=== PATIENT | male | born 1985 ===

== ENCOUNTER 2020-03-26 09:57 | Outpatient (REF) | payer MEDICAID, SELFPAY | END 2020-03-26 09:58 | disposition home or self-care (01) | LOC: HO.LAB 09:57 | PROVIDERS: Visit Provider Internal Medicine | DX: Z20.828 Contact with and (suspected) exposure to other viral communicable diseases (principal) | CPT/HCPCS: 36415; 87635 ==

== ENCOUNTER → 2020-05-04 09:38 | Outpatient (BNVA) | payer MEDICAID, SELFPAY | PROVIDERS: PCP Family Medicine; Referring Provider Family Medicine; Visit Provider Surgery | DX: L05.01 Pilonidal cyst with abscess (principal) | CPT/HCPCS: 99212 ==

== ENCOUNTER 2020-09-08 17:01 | Outpatient (REF) | payer MEDICAID, SELFPAY ==
--- NOTE | ~2020-09-08 | MR_ITS ---
EXAMINATION: MR BRAIN WITHOUT CONTRAST CLINICAL INFORMATION: Headaches. COMPARISON: Head CT from . TECHNIQUE: Multiplanar, multisequence imaging of the brain was performed without contrast. FINDINGS: No diffusion abnormalities are identified to suggest an acute infarct. The ventricles are normal in size. No mass effect or midline shift is seen. No brain parenchymal signal abnormality is noted. No extra-axial fluid collections are seen. The brainstem and cerebellum are normal. The gradient refocused acquisition is normal. The craniovertebral junction, marrow signal, and midline structures are normal. The major intracranial flow voids at the level of the [place] are preserved. The dural venous sinus flow voids are maintained. The mastoid air cells are well aerated. A focal depressed defect in the medial wall of the left orbit may be chronically posttraumatic in etiology. There is a mild amount of fluid and mucosal thickening in the right frontal sinus ostium and frontal recess. Severe leftward nasal septal deviation with nasal septal spurring. Small retention cysts visible along the floor of the right maxillary sinus. There is an incidental ovoid 2.4 x 0.6 x 2.3 cm left parietal scalp lipoma. MR/MR head/brain wo con IMPRESSION: Normal MRI of the brain. No acute process. Mild amount of fluid and mucosal thickening in the right frontal sinus ostium and frontal recess. Severe leftward nasal septal deviation and nasal septal spurring. Incidental small left parietal scalp lipoma.
== END 2020-09-08 17:02 | disposition home or self-care (01) ==
LOC: HO.MRI 17:01
PROVIDERS: Visit Provider Registered Nurse Community Health
DX: G44.85 Primary stabbing headache (principal)
CPT/HCPCS: 70551

== ENCOUNTER 2020-10-14 13:57 | Outpatient (REF) | payer MEDICAID, SELFPAY ==
[2020-10-14 14:33] LABS: COVID-19 Test Negative (Negative)
== END 2020-10-14 13:58 | disposition home or self-care (01) ==
LOC: HO.LAB 13:57
PROVIDERS: Visit Provider Internal Medicine
DX: Z20.822 Contact with and (suspected) exposure to COVID-19 (principal)
CPT/HCPCS: 36415; 87635; C9803

== ENCOUNTER 2021-09-02 03:35 | Emergency (ER) | payer MEDICAID, SELFPAY ==
--- NOTE | ~2021-09-02 | CT_ITS ---
EXAMINATION: NONCONTRAST HEAD CT NONCONTRAST CERVICAL SPINE CT INDICATION INFORMATION: Fall, pain COMPARISON: 09/08/2020 TECHNIQUE: Separate noncontrast CT examinations of the head and cervical spine were performed. Coronal head CT images and coronal and sagittal cervical spine images were created at the technologist workstation. DLP: 1116 mGy-cm DOSE LOWERING TECHNIQUES: This CT examination was performed using dose optimization techniques as appropriate, variously including the following: - Automated exposure control - Adjustment of mA and/or kV according to patient size (this includes techniques or standardized protocols for targeted exams were dose is matched to indication/reason for exam; i.e. extremities or head) - Use of iterative reconstruction technique FINDINGS: Head: There is no evidence of acute intracranial hemorrhage or territorial infarction. No abnormal mass-effect or midline shift is seen. [place] to white matter differentiation is well preserved. No extra-axial fluid collections are identified. The ventricles are normal in size. There is no abnormal attenuation within the brain parenchyma. The osseous structures and soft tissues are normal. Small mucous retention cysts in the right maxillary and frontal sinuses. The mastoid air cells are well-aerated. Cervical spine: There is anatomic alignment of the vertebral bodies and posterior elements. Vertebral body heights are maintained. There is mild disc space narrowing at C5-C6 with associated endplate osteophytes. No evidence of acute fracture. No prevertebral soft tissue swelling. Visualized portions of the lung apices are unremarkable. The thyroid gland is unremarkable. CT/CT head/brain wo con IMPRESSION: No acute findings identified in the head or cervical spine.
--- NOTE | ~2021-09-02 | XR_ITS ---
EXAMINATION: XR SHOULDER, LEFT CLINICAL INFORMATION: Fall, pain COMPARISON: 12/14/2015 TECHNIQUE: Three views of the left shoulder. FINDINGS: Glenohumeral alignment is anatomic with moderate degenerative change. No acute fracture is seen. Plate and screw fixation hardware is present along the left clavicle. The acromioclavicular joint is intact with mild degenerative change. XR/XR shoulder LT min 2V IMPRESSION: No acute findings identified.
--- NOTE | ~2021-09-02 | CT_ITS ---
EXAMINATION: NONCONTRAST HEAD CT NONCONTRAST CERVICAL SPINE CT INDICATION INFORMATION: Fall, pain COMPARISON: 09/08/2020 TECHNIQUE: Separate noncontrast CT examinations of the head and cervical spine were performed. Coronal head CT images and coronal and sagittal cervical spine images were created at the technologist workstation. DLP: 1116 mGy-cm DOSE LOWERING TECHNIQUES: This CT examination was performed using dose optimization techniques as appropriate, variously including the following: - Automated exposure control - Adjustment of mA and/or kV according to patient size (this includes techniques or standardized protocols for targeted exams were dose is matched to indication/reason for exam; i.e. extremities or head) - Use of iterative reconstruction technique FINDINGS: Head: There is no evidence of acute intracranial hemorrhage or territorial infarction. No abnormal mass-effect or midline shift is seen. [place] to white matter differentiation is well preserved. No extra-axial fluid collections are identified. The ventricles are normal in size. There is no abnormal attenuation within the brain parenchyma. The osseous structures and soft tissues are normal. Small mucous retention cysts in the right maxillary and frontal sinuses. The mastoid air cells are well-aerated. Cervical spine: There is anatomic alignment of the vertebral bodies and posterior elements. Vertebral body heights are maintained. There is mild disc space narrowing at C5-C6 with associated endplate osteophytes. No evidence of acute fracture. No prevertebral soft tissue swelling. Visualized portions of the lung apices are unremarkable. The thyroid gland is unremarkable. CT/CT cervical spine wo con IMPRESSION: No acute findings identified in the head or cervical spine.
--- NOTE | ~2021-09-02 | XR_ITS ---
EXAMINATION: XR LUMBOSACRAL SPINE CLINICAL INFORMATION: Fall, pain COMPARISON: None TECHNIQUE: Three views of the lumbosacral spine. FINDINGS: There is anatomic alignment of the lumbar vertebral bodies and posterior elements. Vertebral body heights are maintained. Intervertebral disc spaces are relatively well-preserved. No acute fracture is seen. Sacroiliac joints are intact. XR/XR lumbar spine 2-3V IMPRESSION: No acute findings identified.
[2021-09-02 03:40] VITALS: BP 128/74; PULSE 76; RESP 16; TEMP 36.7; O2SAT 100; BMI 22.8
--- NOTE | 2021-09-02 03:58 | ED.FALL ---
HPI - Fall General Chief Complaint: Fall Stated Complaint: Syncope Time Seen by Provider: 09/02/21 03:39 Source: patient Mode of arrival: ambulatory Limitations: no limitations History of Present Illness MD complaint: fall Onset (ago): hour(s) (24) Fall from: standing and down stairs (#) (10) Fall witnessed: no Place fall occurred: home Loss of consciousness: unsure Prolonged down time: no Symptoms prior to fall: dizziness (occasionally gets dizzy when he stands felt slightly dizzy and fell - had just gotten up and his bedroom is right by the stairs) Context: other (lost balance) Location of injury: head, neck and back Location of injury - extremities: left: shoulder Severity: moderate Quality: dull and aching Associated symptoms (after fall): headache Related Data Home Medications Medication Instructions Recorded Confirmed omeprazole 20 mg tablet,delayed 20 mg PO DAILY 05/04/20 05/04/20 release Previous Rx's Medication Instructions Recorded cyclobenzaprine 10 mg tablet 10 mg PO TID PRN #14 tab 09/02/21 lidocaine 4 % topical patch 1 patch TOPICAL DAILY PRN #10 ea 09/02/21 Allergies Allergy/AdvReac Type Severity Reaction Status Date / Time prednisone [PREDNISONE] Allergy Unknown UNKNOWN Verified 05/04/20 09:48 Review of Systems Review of Systems: Constitutional : No Fever, No Chills ENT/Mouth : No Ear Pain, No Hoarseness, No sore throat Eyes: No Eye Pain, No Swelling, No Redness, No Foreign Body Cardiovascular : No Chest Pain, No SOB Respiratory : No Cough, No Dyspnea Gastrointestinal : No Nausea, No Vomiting, No Diarrhea, No abdominal Pain Genitourinary : No Dysuria, No Hematuria Musculoskeletal : positive joint pain, No Myalgias, No Joint Swelling Skin : No Skin lacerations, No rash Neuro : No Weakness, No Numbness, No Loss of Consciousness, No Dizziness, pos Headache Psych : No Anxiety/Panic, No Depression Heme/Lymph: no easy bruising, no Lymphadenopathy Endocrine : No Polyuria, No Polydipsia All other systems reviewed and are negative [facility] Past Medical History Medical History Anxiety Family history of colon cancer Surgical History (Updated 05/04/20 @ 09:50 by MONTSERRAT Hicks) History of shoulder surgery History of surgical removal of pilonidal cyst Social History Social History (Updated 09/02/21 @ 04:04 by Yanni Godinez DO) Alcohol intake: never Patient Tobacco Use Status: Tobacco use Unknown Advance Directives: No Physical Exam Vital Signs: Vital Signs: Last Vital Signs Temp 98.1 F 09/02/21 03:40 Pulse 63 09/02/21 04:19 Resp 16 09/02/21 04:19 BP 117/75 09/02/21 04:19 Pulse Ox 98 09/02/21 04:19 BMI result Body Mass Index 22.8 Appearance: Alert. Oriented X3. No acute distress. Eyes: Pupils equal, round and reactive to light. ENT: Pharynx normal. Neck: Normal inspection. ttp along R trapezius no step offs CVS: Normal heart rate and rhythm. Pulses normal. Respiratory: No respiratory distress. Breath sounds normal. Abdomen: Soft and non-tender. Back: ttp along lower lumbar area no step offs no hematoma noted Skin: Skin warm and dry. Normal skin color. Normal skin turgor. Extremities: No lower extremity edema. ttp along posterior shoulder contusion noted distal NV intact, full ROM Neuro: Oriented X 3. No motor deficit. No sensory deficit. Course Course Course Narrative: no acute findings at this time MDM - Fall MDM Narrative Medical decision making narrative: 36 yo male with no sig PMH no AC therapy reports feeling dizzy after getting out of bed last night no CP/SOB reports he has felt dizzy in the past upon standing - no GIB symptoms reported VS stable doubt anemia at this time he then notes because his bedroom door is close to the stairs he fell and tried to grab the railing and ended up falling - possible LOC. Has pain to head and neck - CT head/neck ordered for trauma (hx of concussions in the past) xrays of lumbar spine and left shoulder. Dispo per results and findings. Discharge Plan Discharge Clinical Impression: Contusion of left shoulder Qualifiers: Encounter type: initial encounter Qualified Code(s): S40.012A - Contusion of left shoulder, initial encounter Head injury Qualifiers: Encounter type: initial encounter Qualified Code(s): S09.90XA - Unspecified injury of head, initial encounter Patient Disposition: Home, Self-Care Instructions: Head Injury (ED), Contusion in Adults (ED) Additional Instructions: return to ED for any worsening symptoms or concerns no acute findings on CT of the head, cervical spine xrays of shoulder and lower back negative for fracture Prescriptions: New cyclobenzaprine 10 mg tablet 10 mg PO TID PRN (Reason: muscle spasm) Qty: 14 0RF lidocaine 4 % adhesive patch,medicated 1 patch topical DAILY PRN (Reason: pain) Qty: 10 0RF Rx Instructions: may leave on for up to 12 hrs No Action omeprazole 20 mg tablet,delayed release (DR/EC) 20 mg PO DAILY 0RF Stand Alone Forms: Work/School Release
[2021-09-02 04:19] VITALS: BP 117/75; PULSE 63; RESP 16; O2SAT 98
[2021-09-02 06:00] VITALS: PULSE 81; RESP 16; O2SAT 97
== END 2021-09-02 06:43 | disposition home or self-care (01) ==
PROVIDERS: Emergency Provider Emergency Medicine
DX: S09.90XA Unspecified injury of head, initial encounter (principal); S40.012A Contusion of left shoulder, initial encounter; W10.9XXA Fall (on) (from) unspecified stairs and steps, initial encounter; Y93.9 Activity, unspecified; Y92.009 Unspecified place in unspecified non-institutional (private) residence as the place of occurrence of the external cause; Y99.9 Unspecified external cause status
CPT/HCPCS: 70450; 72100; 72125; 73030; 99284

== ENCOUNTER 2022-05-15 08:03 | Emergency (ER) | payer MEDICAID, SELFPAY ==
[2022-05-15 08:05] VITALS: BP 107/67; PULSE 76; RESP 18; TEMP 36.7; O2SAT 99; BMI 25.8
--- NOTE | 2022-05-15 08:35 | ED.SKABFB ---
HPI - Skin/Abscess/Foreign Bdy General Chief complaint: Skin/Abscess/Foreign Body Stated complaint: cyst Time Seen by Provider: 05/15/22 08:11 Source: patient and family Mode of arrival: ambulatory Limitations: no limitations History of Present Illness HPI narrative: Here with swelling, redness to the right groin for 1 month. Patient did a course of doxycycline with continued swelling and redness. No medical history. No fevers or chills. Patient not doing any warm compresses at home Related Data Home Medications Medication Instructions Recorded Confirmed omeprazole 20 mg tablet,delayed 20 mg PO DAILY 05/04/20 05/04/20 release Previous Rx's Medication Instructions Recorded cyclobenzaprine 10 mg tablet 10 mg PO TID PRN muscle spasm #14 09/02/21 tabs lidocaine 4 % topical patch 1 patch topical DAILY PRN pain #10 09/02/21 ea sulfamethoxazole 800 1 tab PO Q12H #14 tabs 05/15/22 mg-trimethoprim 160 mg tablet (Bactrim DS) Allergies Allergy/AdvReac Type Severity Reaction Status Date / Time prednisone [PREDNISONE] Allergy Unknown UNKNOWN Verified 05/04/20 09:48 Review of Systems Review of Systems: Yes all other systems are reviewed and are negative Constitutional: Constitutional: Reports no additional constitutional complaints, Denies body ache(s), Denies chills, Denies fever(s), Denies headache(s) and Denies weakness Eyes: Eyes: Reports no additional eye complaints and Denies change in vision ENT: Reports system reviewed and no additional complaints, except as documented, Denies dizziness, Denies headache(s), Denies nasal congestion, Denies nasal discharge and Denies neck pain Cardiovascular: Cardiovascular: Reports no additional cardiovascular complaints, Denies chest pain, Denies leg edema and Denies dyspnea Respiratory: Respiratory: Reports no additional respiratory complaints, Denies cough and Denies dyspnea Gastrointestinal: Gastrointestinal: Reports no additional gastrointestinal complaints, Denies abdominal pain, Denies diarrhea, Denies nausea and Denies vomiting Genitourinary: Genitourinary: Denies urinary incontinence Musculoskeletal: Musculoskeletal: Reports no additional musculoskeletal complaints, Denies back pain, Denies arthralgias, Denies joint swelling, Denies neck pain, Denies numbness and Denies tingling Integumentary/Breasts: Skin/Breast: Reports system reviewed and no additional complaints, except as docu, Reports swelling, Reports erythema and Denies rash Neurologic: Reports system reviewed and no additional complaints, except as documented, Denies Abnormal speech present, Denies dizziness, Denies headache(s), Denies numbness, Denies tingling and Denies weakness PMFSH Past Medical History Attestation statement: The following information was validated with the patient. Source: old records reviewed and nursing notes reviewed Medical History Anxiety Family history of colon cancer Surgical History History of shoulder surgery History of surgical removal of pilonidal cyst Social History Social History Alcohol intake: never Patient Tobacco Use Status: Tobacco use Unknown Advance Directives: No Advance Directives Information Provided: No Physical Exam Vital Signs: Vital Signs: Last Vital Signs Temp 98.1 F 05/15/22 08:05 Pulse 76 05/15/22 08:05 Resp 18 05/15/22 08:05 BP 107/67 05/15/22 08:05 Pulse Ox 99 05/15/22 08:05 O2 Del Method 05/15/22 08:05 BMI result Body Mass Index 25.8 Const: General: cooperative, healthy appearing, comfortable and no acute distress Orientation/consciousness: patient oriented x3 Limitations: no limitations HEENT: Head: Yes normal to inspection Ears: hearing grossly normal bilaterally General nose exam: Normal external nose present Face and sinus: Yes normal facial exam Mouth: Normal oral and palatal mucosa present Throat: Yes posterior oropharynx normal Eyes: General: appearance normal, both eyes and all related structures Pupils: Equal, round and reactive pupils present Neck: Neck: Yes normal visual inspection Chest: Chest palpation & inspection: normal inspection of the chest Resp: Effort & Inspection: normal respiratory effort Auscultation: clear to auscultation bilaterally Cardio: Rate: regular rate Rhythm: regular rhythm Peripheral pulses: Peripheral pulses 2+ throughout GI: Inspection: Yes normal to inspection Palpation (GI): Soft to palpation and nontender Auscultation: normal bowel sounds : Male genitals images: 1. small area of erythema/tenderness which is firm and indurated. No central fluctuance or induration Back/Spine/Pelvis: Thoracic/Lumbar Spine: thoracic and lumbar spine normal to inspection Skin: General skin exam: no rashes or lesions noted Neuro: General: patient oriented x3, no focal motor deficits and normal sensation to monofilament Cranial nerves: Yes Equal, round and reactive pupils present Cognition (Neuro): normal cognition Speech: No Abnormal speech present Gait exam (Neuro): Normal gait present Motor exam (neuro): 5/5 motor strength present throughout Extrem: General: Yes normal to inspection MDM - Skin/Abscess/Foreign Bdy MDM Narrative Medical decision making narrative: 36-year-old male here with small abscess to the right groin. Patient's area is indurated and firm. Not conducive to I& D. Patient we recommended to use warm compresses and start oral antibiotics. Reviewed worrisome signs and symptoms of when to return to the emergency room. Comfortable plan for discharge home. Differential Diagnosis Differential diagnosis: Likely abscess of skin or subcutaneous tissue Medical Records Attestation: I reviewed the patient's medical records. Lab Data Attestation: I reviewed the patient's lab results. Discharge Plan Discharge Clinical Impression: Abscess of skin or subcutaneous tissue Patient Disposition: Home, Self-Care Instructions: Abscess (ED) Additional Instructions: Warm compresses four times daily Take the antibiotic with food Prescriptions: New sulfamethoxazole-trimethoprim [Bactrim DS] 800-160 mg tablet 1 tab PO Q12H Qty: 14 0RF No Action cyclobenzaprine 10 mg tablet 10 mg PO TID PRN (Reason: muscle spasm) Qty: 14 0RF lidocaine 4 % adhesive patch,medicated 1 patch topical DAILY PRN (Reason: pain) Qty: 10 0RF Rx Instructions: may leave on for up to 12 hrs omeprazole 20 mg tablet,delayed release (DR/EC) 20 mg PO DAILY Referrals: [facility] [Primary Care Provider] - Interventions: ED Discharge Assessment Last Done: 05/15/22 08:47 Discharge Date/Time: 05/15/22 08:48
== END 2022-05-15 08:48 | disposition home or self-care (01) ==
PROVIDERS: Emergency Provider Emergency Medicine
DX: L02.214 Cutaneous abscess of groin (principal)
CPT/HCPCS: 99282; 99283

== ENCOUNTER 2022-08-06 02:08 | Emergency (ER) | payer MEDICAID, SELFPAY ==
[2022-08-06 02:21] VITALS: BP 141/78; PULSE 78; RESP 16; TEMP 36.8; O2SAT 99; BMI 24.3
--- OUTSIDE RECORDS SUMMARY | 2022-08-06 04:26 | XMS_ITS | Continuity of Care Document ---
:1985 Author Organization [facility] Address [address] [place] [address], [address] Floor, [address] [place] [id number]- Care Team Providers Name Role Phone Riki DARDEN, Ashwini Primary Care Physician Encounter [facility] [place] Date(s): 08/07/19 - 11/27/19 [facility] [address] [facility], 3rd Floor, [address] [place] [id number]- [facility] Attending Physician: Jeannie Freeman MD Admitting Physician: Jeannie Freeman MD Referring Physician: Justen Trujillo Allergies, Adverse Reactions, Alerts Substance Reaction Severity Status sulfADIAZINE Unknown Active predniSONE 'psychotic reaction' Active penicillins Unknown Active corticosteroids Unknown Active Dilantin Unknown Active Medications med for heartburn?? med for heartburn??, Refills 0, Maintenance, 06/10/19 11:05:33 EST, Compound Start Date: 06/10/19 Status: OrderedSuprep Bowel Prep Kit oral liquid See Instructions, 177 mL By Mouth as per INS, # 354 mL, 0 Refills, Maintenance, 06/10/19 11:26:05 EST, [id number], 177 mL By Mouth as per INS, 173, cm, 06/10/19 11:02:25 EST, Height, 74.3, kg, 12/23/18 16:44:07 EDT, Dry Weight Start Date: 06/10/19 Status: Ordered Problem List Condition Effective Dates Status Health Status Informant Anxiety disorder(Confirmed) Active Social History Social History Type Response Smoking Status Current every day smoker entered on: 08/25/17 Sex
--- OUTSIDE RECORDS SUMMARY | 2022-08-06 04:26 | XMS_ITS | Continuity of Care Document ---
:1985 Author Organization [facility] Address [address] [place] [phone]- Care Team Providers Name Role Phone Riki DARDEN, Ashwini Primary Care Physician Encounter [facility] [place] Date(s): 06/10/19 - 06/20/19 [facility] [address] [place] [phone]- [facility] Attending Physician: AdmTiffanie gleason Admitting Physician: Admtr, [id number] Referring Physician: Admtr, [id number] Allergies, Adverse Reactions, Alerts Substance Reaction Severity [...]
--- OUTSIDE RECORDS SUMMARY | 2022-08-06 04:26 | XMS_ITS | Continuity of Care Document ---
:1985 Author Organization [facility] Address [address] [place] [phone]- Care Team Providers Name Role Phone Ashwini Lyn MD Primary Care Physician Encounter [facility] [place] Date(s): 09/24/21 - 09/24/[address] [phone]- Discharge Disposition: A-D/C Home Attending Physician: Monty Barnes MD Admitting Physician: Monty Barnes MD Referring Physician: Not on Staff, Referring MD Allergies, Adverse Reactions, Alerts Substance Reaction Severity Status sulfADIAZINE Unknown Active predniSONE 'psychotic reaction' Active penicillins Unknown Active corticosteroids Unknown Active Dilantin Unknown Active Immunizations Not Given Vaccine Date Status Refusal Reason tetanus/diphtheria/pertussis, acel(Tdap)1 09/10/21 Not Gi rose Patient Refuses 1Result Comment: pt walked out before administration Medications med for heartburn?? med for heartburn??, [...]
--- OUTSIDE RECORDS SUMMARY | 2022-08-06 04:26 | XMS_ITS | Continuity of Care Document ---
:1985 Author Organization [facility] Address [address] [place] [address], [address] [place] [address], [address] [place] [phone]- Care Team Providers Name Role Phone Riki DARDEN, Ashwini Primary Care Physician Encounter [facility] [place] Date(s): 06/24/19 - 09/06/19 [facility] [address] [place] [address], [address] [place] [address], [address] [place] [id number]- [facility] Attending Physician: Jeannie Freeman MD Admitting Physician: [...]
--- OUTSIDE RECORDS SUMMARY | 2022-08-06 04:26 | XMS_ITS | Continuity of Care Document ---
:1985 Author Organization [facility] Address [address] [place] [phone]- Care Team Providers Name Role Phone Riki DARDEN, Ashwini Primary Care Physician [place] [facility] [place]10[place] - 10/01/[address] [phone]- [facility] Attending Physician: Geovanni Jin MD Admitting Physician: Geovanni Jin MD Allergies, Adverse Reactions, Alerts Substance Reaction Severity Status sulfADIAZINE Unknown Active corticosteroids Unknown Active Dilantin Unknown Active predniSONE 'psychotic reaction' Active penicillins Unknown Active Medications med for heartburn?? med [...]
--- OUTSIDE RECORDS SUMMARY | 2022-08-06 04:26 | XMS_ITS | Continuity of Care Document ---
:1985 Author Organization [facility] Address [address] [place] [address], 3rd Floor, [address] [place] [phone]- Care Team Providers Name Role Phone Riki DARDEN, Ashwini Primary Care Physician Encounter [facility] [place] Date(s): 10/28/19 - 11/27/19 [facility] [address] [facility], 3rd Floor, [address] [place] [phone]- [facility] Attending Physician: Admtr, [id number] Admitting Physician: Admtr, [id number] Referring Physician: Admtr, [id number] Allergies, Adverse Reactions, [...]
--- OUTSIDE RECORDS SUMMARY | 2022-08-06 04:26 | XMS_ITS | Continuity of Care Document ---
:1985 Author Organization [facility] Address [address] [place] [id number] Care Team Providers Name Role Phone Ashwini Lyn MD Primary Care Physician Encounter [facility] [place] Date(s): 09/09/21 - 09/10/[address] [id number]- Discharge Disposition: A-D/C Home Attending Physician: Shelbie Drummond MD Admitting Physician: Shelbie Drummond MD Referring Physician: Not on Staff, Referring [...] Status Health Status Informant Anxiety disorder(Confirmed) Active Vital Signs Most recent to oldest [Reference Range]: 1 2 Oxygen Saturation [94-100 %] 98 % (09/09/21 10:53 PM) Pulse Rate [55-90 bpm] 98 bpm *H* (09/09/21 10:53 PM) Blood Pressure [90-138/55-84 mm Hg] 129/68 mm Hg (09/09/21 10:53 PM) Respiratory Rate [16-30 br/min] 16 br/min 16 br/mi n (09/10/21 1:53 AM) (09/09/21 10:53 PM) Temperature [96.8-100.4 DegF] 98.9 DegF (09/09/21 10:53 PM) Mode of Delivery (Oxygen) Room air (09/09/21 10:53 PM) Blood pressure sites Arm, left (09/09/21 10:53 PM) Temperature Route Oral (09/09/21 10:53 PM) Social History Social History Type Response Smoking Status Current every day smoker entered on: 08/25/17 Sex
== END 2022-08-06 04:42 | disposition left against medical advice (07) ==
PROVIDERS: Emergency Provider Emergency Medicine
DX: R07.0 Pain in throat (principal)
CPT/HCPCS: 99281

== ENCOUNTER 2022-11-27 05:35 | Inpatient (IN) | payer MEDICAID, SELFPAY ==
[2022-11-27] VITALS (15 sets, daily range): BP systolic 100–136; BP diastolic 45–81; PULSE 67–99; RESP 11–20; TEMP 36.6–36.9; O2SAT 97–100; BMI 28.9; BMI 28.8
--- NOTE | ~2022-11-27 | CT_ITS ---
EXAMINATION: CT SOFT TISSUE NECK WITH CONTRAST CLINICAL INFORMATION: Sore throat, epiglottitis. COMPARISON: Noncontrast CT of neck from 11/27/2022. TECHNIQUE: Following the intravenous administration of 60 mL of Omnipaque 350 intravenous contrast, helical imaging was performed in the axial plane with generation of coronal and sagittal reformatted images. This CT examination was performed using dose optimization techniques as appropriate, variously including the following: *Automated exposure control *Adjustment of mA and/or kV according to patient size (this includes techniques or standardized protocols for targeted exams where dose is matched to indication/reason for exam; i.e. extremities or head) *Use of iterative reconstruction technique DLP: 545 mGy-cm FINDINGS: Parotid glands, submandibular glands, and thyroid gland are normal. The nasopharynx, oral cavity, tongue base, and tonsillar pillars are unremarkable. No contour abnormality or pathologic enhancement within the oral cavity or pharyngeal mucosal space. The parapharyngeal fat planes are preserved. There appears to be edematous thickening of epiglottis and aryepiglottic folds, as well as supraglottic structures (false vocal cords with obliteration of definition of the laryngeal ventricles). No fluid collections in the deep soft tissues. The visualized proximal esophagus is normal. Normal sized lymph nodes of the suprahyoid and infrahyoid neck without evidence of lymphadenopathy by size criteria. The carotid and vertebral arteries opacify normally. Skull base is normal and the mastoid air cells and middle ear cavities are clear. The visualized intracranial structures are normal. The paranasal sinuses are well aerated. The orbital hammond, globes and retrobulbar soft tissues are unremarkable. Cervical vertebra have normal height and alignment. Mild discovertebral degenerative change at C5-C6. No prevertebral soft tissue swelling. A very small focus of mucus is present in a peripheral bronchus of the right upper lobe. There is subtle centrilobular haziness of the visualized lungs. This might represent a minimal reaction to inhaled substances. Query if there is any history of cigarette smoking. CT/CT soft tissue neck w IV con IMPRESSION: * There are imaging findings of epiglottitis and supraglottitis. * No soft tissue abscess or lymphadenopathy within the neck. * No new observations when compared to noncontrast exam of 11/27/2022.
--- NOTE | ~2022-11-27 | CT_ITS ---
EXAMINATION: CT SOFT TISSUE NECK WITHOUT CONTRAST CLINICAL INFORMATION: Sore throat. COMPARISON: CT cervical spine 09/02/2021. TECHNIQUE: Helical imaging was performed in the axial plane with generation of coronal and sagittal reformatted images. This CT examination was performed using dose optimization techniques as appropriate, variously including the following: *Automated exposure control *Adjustment of mA and/or kV according to patient size (this includes techniques or standardized protocols for targeted exams where dose is matched to indication/reason for exam; i.e. extremities or head) *Use of iterative reconstruction technique DLP: 643 mGy-cm FINDINGS: The diagnostic accuracy of this examination is limited due to the absence of intravenous contrast. There is circumferential mucosal swelling of the supraglottic airway and epiglottis best visualized on sagittal image 52 of 91 series 5. Parapharyngeal and retromaxillary fat is preserved. Sub[employer]r spaces are symmetric. Parotid and submandibular glands are normal. The tongue base is normal. The thyroid gland is normal and the remainder of the visualized visceral soft tissues are normal. No pathologically enlarged cervical lymph nodes. No mediastinal or axillary adenopathy is visualized within the [id number] of this examination. There is ill-defined groundglass airspace disease visualized within both lungs. No acute osseous finding. Specifically no worrisome lytic or blastic osseous lesion. The skull base is intact. No mastoid or middle ear effusion. No active paranasal sinus disease. Limited visualization of the intracranial anatomy reveals no abnormal finding. CT/CT soft tissue neck wo IV con IMPRESSION: The diagnostic accuracy of this examination is limited due to the absence of intravenous contrast. The findings within the upper airway indicate the likelihood of supraglottitis and epiglottitis. No pathologically enlarged cervical lymph nodes.
[2022-11-27] MEDS: diphenhydrAMINE HCL 50 MG/ML VIAL IVPUSH (05:52)
[2022-11-27] MEDS: 0.9 % Sodium Chloride 1,000 ML 999 ML IV (05:52)
[2022-11-27] MEDS: Famotidine/PF 20 MG/2 ML VIAL IVPUSH (05:52)
--- NOTE | 2022-11-27 06:22 | ED.GENADULT ---
HPI - General Adult General Chief complaint: Upper Respiratory Symptoms Stated complaint: SoB, Can't Breathe Time Seen by Provider: 11/27/22 05:45 Source: patient Mode of arrival: ambulatory Limitations: no limitations History of Present Illness HPI narrative: 37-year-old male came in very anxious complaining of sore throat and feels the throat is closing up and he can not breathe or swallow. Patient declined any recent a change of his daily routine, no new medication, no new food, patient was evaluated at [facility] earlier today for the same symptoms patient was treated for allergic reaction and was released, return for worsening of the sore throat. Patient is speaking and full sentence in the emergency department, able to swallow water. Related Data Home Medications Medication Instructions Recorded Confirmed omeprazole 20 mg tablet,delayed 20 mg PO DAILY 05/04/20 05/04/20 release Previous Rx's Medication Instructions Recorded cyclobenzaprine 10 mg tablet 10 mg PO TID PRN muscle spasm #14 09/02/21 tabs lidocaine 4 % topical patch 1 patch topical DAILY PRN pain #10 09/02/21 ea sulfamethoxazole 800 1 tab PO Q12H #14 tabs 05/15/22 mg-trimethoprim 160 mg tablet (Bactrim DS) Allergies Allergy/AdvReac Type Severity Reaction Status Date / Time prednisone [PREDNISONE] Allergy Unknown UNKNOWN Verified 05/04/20 09:48 Review of Systems Review of Systems: All other systems are reviewed and are negative Constitutional: Reports as per HPI and Reports no additional constitutional complaints Eyes: Reports as per HPI and Reports no additional eye complaints Reports system reviewed and no additional complaints, except as documented Cardiovascular: Reports as per HPI and Reports no additional cardiovascular complaints Respiratory: Reports as per HPI and Reports no additional respiratory complaints Gastrointestinal: Reports as per HPI and Reports no additional gastrointestinal complaints Genitourinary: Reports no additional female genitourinary complaints Musculoskeletal: Reports no additional musculoskeletal complaints Skin/Breast: Reports system reviewed and no additional complaints, except as docu Psychiatric: Reports no additional psychiatric complaints Endocrine: Reports no additional endocrine complaints Hematologic/Lymphatic: Reports no additional hematologic/lymphatic complaints Allergic/Immunologic: Reports no additional allergic/immunologic complaints Reports system reviewed and no additional complaints, except as documented and Reports Abnormal speech present [facility] Past Medical History Medical History Anxiety Family history of colon cancer Surgical History History of shoulder surgery History of surgical removal of pilonidal cyst Social History Social History Alcohol intake: never Patient Tobacco Use Status: Tobacco use Unknown Smoked in Last 30 Days: Yes Use of substances other than those prescribed or required for medical reasons: Yes Substance Use Type: Marijuana Advance Directives: No Advance Directives Information Provided: No Physical Exam ED Vital Signs: Vital Signs - 24 hr 11/27/22 05:40 11/27/22 05:45 Temperature 98.5 F Pulse Rate 99 Respiratory Rate 17 Blood Pressure 113/74 Pulse Oximetry 100 100 Oxygen Delivery Method Room Air Room Air BMI result Body Mass Index 28.9 Vital signs have been reviewed as appeared to be correct. Blood pressure normal. Heart rate normal. Respiration rate normal. Temperature normal. Oxygen saturation normal. Appearance: Anxious, Alert. Oriented X3. No acute distress. Head: Normal external exam. Normocephalic. Atraumatic. No Schwartz signs noted. No raccoon eyes noted Eyes: PERRLA. EOMI. Conjunctiva and sclera normal. Eyelids normal. ENT: TM's Normal. Pharynx normal. Uvula midline. Moist mucous membranes. No trismus noted. No drooling noted. No muffled voice noted, no stridor, no wheezing. Neck: Normal inspection. Neck supple. FROM. No adenopathy. Thyroid Normal. No meningeal signs. No neck mass noted. CVS: Normal heart rate and rhythm. Heart sound normal. No murmurs noted. Pulses normal throughout. Respiratory: No respiratory distress. Painless inspiration. Breath sounds normal. No wheezes/rales/rhonchi noted. Chest nontender. No accessory muscle usage noted or decreased air movement noted. Abdomen: Soft and nontender. Bowel sounds normal in all 4 quadrants. No distention noted. No organomegaly noted. No visible injury noted. Back: No CVA tenderness. Full range of motion noted. Skin: Skin warm and dry. Normal skin color. Normal skin turgor. No rashes/lesions/lacerations noted. Extremities: No lower extremity edema. Extremities exhibit normal range of motion. Extremities nontender. Neuro: Oriented X 3. Cranial nerve exam: II-XII are grossly intact No motor deficit. No sensory deficit. Reflexes normal. Course Course Course Narrative: 37-year-old male appear very anxious came in with sore throat and complain of difficulty breathing his exam showing clear airway, CT soft tissue of the neck is pending, the case signed out to Dr. Davis. Medications Administered Discontinued Medications Generic Name Dose Route Start Last Admin Trade Name Freq PRN Reason Stop Dose Admin Diphenhydramine HCl 50 mg 11/27/22 05:45 11/27/22 05:52 Diphenhydramine Hcl 50 Mg/Ml Vial IVPUSH 11/27/22 05:46 50 mg ONCE ONE Administration Famotidine 20 mg 11/27/22 05:45 11/27/22 05:52 Famotidine/Pf 20 Mg/2 Ml Vial IVPUSH 11/27/22 05:46 20 mg ONCE ONE Administration Sodium Chloride 1,000 mls @ 999 mls/hr 11/27/22 05:45 11/27/22 05:52 Ns IV 11/27/22 06:45 999 mls/hr .Q1H1M ONE Administration Lorazepam 1 mg 11/27/22 06:24 11/27/22 06:42 Lorazepam 1 Mg Tablet PO 11/27/22 06:25 1 mg ONCE ONE Administration Oxycodone HCl 5 mg 11/27/22 06:34 11/27/22 06:42 Oxycodone Hcl Immed Release 5 Mg Tablet PO 11/27/22 06:35 5 mg ONCE ONE Administration Medical Decision Making Differential Diagnosis Differential Diagnoses: The differential diagnosis associated with the presentation includes (anxiety, viral pharyngitis, strep pharyngitis, throat abscess.) Admission/Observation Consideration of admission/observation: Escalation of care including admission/observation considered Discharge Plan Discharge Clinical Impression: Anxiety, Pharyngitis Patient Disposition: Still a Patient Prescriptions: No Action cyclobenzaprine 10 mg tablet 10 mg PO TID PRN (Reason: muscle spasm) Qty: 14 0RF lidocaine 4 % adhesive patch,medicated 1 patch topical DAILY PRN (Reason: pain) Qty: 10 0RF Rx Instructions: may leave on for up to 12 hrs sulfamethoxazole-trimethoprim [Bactrim DS] 800-160 mg tablet 1 tab PO Q12H Qty: 14 0RF omeprazole 20 mg tablet,delayed release (DR/EC) 20 mg PO DAILY
[2022-11-27] MEDS: LORazepam 1 MG TABLET PO (06:42)
[2022-11-27] MEDS: oxyCODONE HCl Immed Release 5 MG TABLET PO (06:42)
--- NOTE | 2022-11-27 06:48 | PC.NURSE ---
Patient started yelling that he could not breathe and that his throat is sore. Patient then began to sit in floor and roll around then jumped onto bed still yelling that he could not breathe and his throat is sore. While jumping on the bed patient pulled of the vehicle monitor technician, pulse ox, and pulled out his IV. Patient continues to yell at staff.
[2022-11-27 07:45] LABS: IDNOW Serial# 08D9AD1C; Strep A Nucleic Acid Negative (Negative)
[2022-11-27] MEDS: Ketorolac Tromethamine 15 MG/ML VIAL IVPUSH ×2 (09:14→16:17)
[2022-11-27] MEDS: Racepinephrine HCL 0.5 ML VIAL.NEB INHALE (09:56)
[2022-11-27 10:07] LABS: Lactic Acid 0.7 mmol/L (0.5-2.0)
[2022-11-27] MEDS: methylPREDNISolone Sod Succ 125 MG/2 ML VIAL IVPUSH (10:11)
[2022-11-27] MEDS: Piperacillin Sodium/Tazobactam 3.375 GM in 0.9 % Sodium Chloride 50 ML IV (10:12)
[2022-11-27] MEDS: dexAMETHasone sod phosphate 10 MG/ML VIAL IVPUSH (10:15)
--- NOTE | 2022-11-27 10:27 | P.EN_ITS ---
Event Note Date of Service: 11/27/22 Event Note: Called urgent to the ER to evaluate patient with difficulty swallowing. Patient had imaging that showed epiglottitis and anesthesia came for an airway evaluation. Patient was nervous but lying at 45 degree angle on room air 98- 99%. He was able to phonate and have brief conversation with me. At this time the patient already received IV antibiotics, H1 and H2 blockers. I recommended steroids both short and long acting along with racemic epi. I called general surgery to come to ER to evaluate patient with me and Dr. Choudhary came. Patient stated he started feeling a little better with the racemic epi so we will reevaluate at noontime(2 hours later). I spoke with the ER attending and PA about our plan and to notify me immediately if patient deteriorates. General surgery is aware and available for standby if we need to go to the OR to perform an awake fiberoptic. Time Spent With Patient Time: Total time managing care of this patient today ____60 minutes.
[2022-11-27 10:44] LABS: MANUAL DIFF FLAG NO
[2022-11-27 10:46] LABS: Basophils Percent Auto 0.2 % (0-2); Eosinophils Percent Auto 0.1 % (0-4); Hematocrit 42.2 % (42.0-52.0); Imm Gran Abs Auto 0.12 X10*3/uL (0.00-0.03); Imm Gran Pct Auto 0.7 % (0.0-0.4); Lymphocytes Absolute Auto 1.1 X10*3/uL (1.2-4.9); Lymphocytes Percent Auto 6.1 % (20-40); Mean Corpuscular HGB Conc 33.2 g/dl (31.0-36.0); Mean Corpuscular Hemoglobin 29.8 pg (27.0-33.0); Mean Corpuscular Volume 89.8 fL (80.0-98.0); Mean Platelet Volume 12.4 fL (9.4-12.4); Monocytes Percent Auto 5.5 % (2-11); Neutrophils Absolute Auto 15.3 x10*3/uL (2.0-8.3); Neutrophils Percent Auto 87.4 % (45-73); Platelet Count 134 X10*3/uL (160-400); Red Cell Distribution Width 13.7 % (11.0-16.0); White Blood Count 17.5 X10*3/uL (4.8-10.8)
[2022-11-27 11:21] LABS: Anion Gap 12 (12-20); Blood Urea Nitrogen 14 mg/dL (9-16); Calcium 8.8 mg/dL (8.4-10.2); Carbon Dioxide 23 mmol/L (22-29); Chloride 112 mmol/L (96-108); Creatinine Clr Calc Pharmacy 112.9; Estimated Glomerular Filt Rate > 60; Ethanol < 10 mg/dL; Glucose Random 82 mg/dL (60-115); Sodium 144 mmol/L (135-145)
--- NOTE | 2022-11-27 11:59 | PC.NURSE ---
patient continues to maintain airway. talking in full clear sentences. SPO2 in the high 90s. will CTM
--- NOTE | 2022-11-27 12:36 | PM.EVENT ---
Event Note Date of Service: 11/27/22 Event Note: Re-evaluated patient with epiglotitis. Reviewed the previous CT scan with Dr. Coughlin which was done around 745am today and was noted to have a large airway with a decent opening of the epiglottis but with subglottic stenosis. After seeing the patient around 20 minutes ago he stated to have a 25% improvement in his breathing. After speaking with the patient and a few of my colleagues it was decided to repeat the CT scan to see if our medical interventions are improving the swelling. Patient has an ICU bed here waiting for him. If necessary will intervene with airway and will reevaluate in an hour. Time Spent With Patient Time: Total time managing care of this patient today ____ minutes.
--- NOTE | 2022-11-27 13:04 | P.HPCC_ITS ---
History of Present Illness Date of Service: 11/27/22 Chief Complaint: Epiglottitis 37-year-old gentleman with underlying history of anxiety and several day history of upper respiratory symptoms being admitted for epiglottitis and airway watch. In ER patient received systemic glucocorticoids, Benadryl, H2 blockers, and racemic nebulized epinephrine with some improvement in his symptoms. On my examination he does not have stridor and is able to maintain normal oximetry. Review of Systems Review of Systems: Yes Unobtainable due to mental condition [facility] Past Medical History Medical History Anxiety Family history of colon cancer Surgical History Surgical History History of shoulder surgery History of surgical removal of pilonidal cyst Social History Social History Alcohol intake: never Patient Tobacco Use Status: Tobacco use Unknown Smoked in Last 30 Days: Yes Use of substances other than those prescribed or required for medical reasons: Yes Substance Use Type: Marijuana Advance Directives: No Advance Directives Information Provided: No Meds Allergies Allergy/AdvReac Type Severity Reaction Status Date / Time prednisone [PREDNISONE] Allergy Unknown UNKNOWN Verified 05/04/20 09:48 Active Medications: Current Medications Heparin Sodium (Porcine) (Heparin Sodium,Porcine 5,000 Unit/Ml Vial) 5,000 unit SUBCUT Q8H [facility] Ceftriaxone Sodium 1 gm/ (Sodium Chloride) 50 mls @ 100 mls/hr IV Q24H [facility] Methylprednisolone Sodium Succinate (Methylprednisolone Sod Succ 40 Mg/Ml Vial) 40 mg IVPUSH DAILY [facility] Home Medications Medication Instructions Recorded Confirmed Last Taken Type omeprazole 20 mg tablet,delayed 20 mg PO DAILY 05/04/20 05/04/20 Unknown History release Physical Exam Vital Signs: Vital Signs: Last Vital Signs Temp 98.5 F 11/27/22 05:40 Pulse 87 11/27/22 10:00 Resp 11 L 11/27/22 10:00 BP 110/60 11/27/22 10:00 Pulse Ox 99 11/27/22 10:00 O2 Del Method Room Air 11/27/22 10:00 BMI result Body Mass Index 28.9 Const: General: no acute distress, alert and awake HEENT: Other: No excessive salivation Eyes: Sclerae: sclerae normal EOM: EOMs intact bilaterally Neck: Neck: Yes no lymphadenopathy, Yes trachea midline, Yes supple and Yes other (No stridor) Resp: Effort & Inspection: normal respiratory effort and no respiratory distress Auscultation: clear to auscultation bilaterally Cardio: Rate: regular rate Rhythm: regular rhythm Heart sounds: no gallops, no murmurs and no rubs GI: Palpation (GI): Soft to palpation and Other GI palpation findings present ( Nontender) Auscultation: normal bowel sounds Extrem: General: Yes no pedal edema, No clubbing and No cyanosis Results Labs 11/27/22 09:46 11/27/22 09:46 Labs: Laboratory Results - last 24 hr 11/27/22 11/27/22 11/27/22 07:19 09:46 09:46 MCV 89.8 MCH 29.8 MCHC 33.2 RDW 13.7 Plt Count 134 L MPV 12.4 Immature Gran % (Auto) 0.7 H Neut % (Auto) 87.4 H Lymph % (Auto) 6.1 L [place] % (Auto) 5.5 Eos % (Auto) 0.1 Baso % (Auto) 0.2 Lymph # (Auto) 1.1 L [place] # (Auto) 1.0 Eos # (Auto) 0.0 Baso # (Auto) 0.0 Abs Immat Gran (auto) 0.12 H Absolute Neuts (auto) 15.3 H Absolute Nucleated RBC 0.000 Nucleated RBC % (auto) 0.0 Anion Gap 12 Estim Creat Clear Calc 112.9 Estimated GFR > 60 Random Glucose 82 Lactic Acid Calcium 8.8 Ethyl Alcohol < 10 S. pyogenes GrpA COREY Negative 11/27/22 09:46 MCV MCH MCHC RDW Plt Count MPV Immature Gran % (Auto) Neut % (Auto) Lymph % (Auto) [place] % (Auto) Eos % (Auto) Baso % (Auto) Lymph # (Auto) [place] # (Auto) Eos # (Auto) Baso # (Auto) Abs Immat Gran (auto) Absolute Neuts (auto) Absolute Nucleated RBC Nucleated RBC % (auto) Anion Gap Estim Creat Clear Calc Estimated GFR Random Glucose Lactic Acid 0.7 Calcium Ethyl Alcohol S. pyogenes GrpA COREY Imaging Radiologist's Impressions: Impressions Soft Tissue Neck CT 11/27/22 08:16 IMPRESSION: The diagnostic accuracy of this examination is limited due to the absence of intravenous contrast. The findings within the upper airway indicate the likelihood of supraglottitis and epiglottitis. No pathologically enlarged cervical lymph nodes. Assessment and Plan (1) Epiglottitis: Status: Acute Plan Assessment: 37-year-old gentleman with epiglottitis admitted to intensive care unit for airway watch Plan: Neuro: No acute issues. Cardiac: No acute issues. Pulmonary: No stridor. Able to maintain normal oximetry on room air. No excessive salivation. Continue with airway watch. Renal: No acute issues. Endo: No acute issues. GI: No acute issues. ID: Epiglottitis. Continue ceftriaxone. Heme/Onc: No acute issues. Psych: No acute issues. Miscellaneous: No acute issues. Prophylaxis: Heparin Diet: Nothing by mouth Critical care time spent: 30 minutes Time Spent With Patient Time: Total time managing care of this patient today ____ minutes.
--- NOTE | 2022-11-27 13:13 | PC.NURSE ---
nurse to nurse report to ICU Kye LEPE
[2022-11-27] MEDS: iohexoL 350 MG/ML 100 ML INFUS..BTL IV (13:36)
--- NOTE | 2022-11-27 14:12 | PC.NURSE ---
Received patient from ER at approx 1340 to ICU, room 262. Patient alert and oriented. Still complaining of sore throat, but breathing improved. Mild hoarseness when speaking, but patient reports improved speech as well. Vitals stable, Lungs clear, no stridor. Patient put on humidified oxygen by RT - 28%. Patient moving in bed independently. Anesthesia came to bedside to assess patient again. Patient educated about high fall risk precautions and staying calm - bed alarm on for safety. Patient voided in urinal, 230ml, specimen obtained.
[2022-11-27 14:29] LABS: Amphetamine Screen Urine Not Detected (Not Detect); Barbiturates, Urine Not Detected (Not Detect); Benzodiazepines Screen Urine Not Detected (Not Detect); Cannabinoid Screen Urine POSITIVE (Not Detect); Cocaine Screen Urine Not Detected (Not Detect); Fentanyl, urine Not Detected (Not Detect); Opiate Screen Urine Not Detected (Not Detect); Phencyclidine Screen Urine Not Detected (Not Detect)
[2022-11-27] MEDS: cefTRIAXone sodium 1 GM in 0.9 % Sodium Chloride 50 ML IV (14:33)
[2022-11-27] MEDS: Heparin Sodium,Porcine 5,000 UNIT/ML VIAL 5000 UNIT SUBCUT (14:36)
--- NOTE | 2022-11-27 14:54 | PHA.MEDREC ---
Pharmacy Consult ? Medication Reconciliation Pharmacy has completed the medication reconciliation. Spoke to pt at bedside, admitted he doesn't take much but did ask a friend for oxycodone yesterday.
--- NOTE | 2022-11-27 16:13 | P.EN_ITS ---
Event Note Date of Service: 11/27/22 (Patient seen at 16:00 in the ICU) Event Note: Patient states that his breathing is 25% better than earlier today. He can speak clearly and without shortness of breath. No stridor heard on exam. Patient is improving with medical treatment and now in ICU for airway observati on. Time Spent With Patient Time: Total time managing care of this patient today30 ____ minutes.
[2022-11-27] MEDS: Morphine Sulfate 2 MG/ML CARTRIDGE IVPUSH (17:43)
[2022-11-27] MEDS: Nicotine 21 MG PATCH.TD24 TRANSDERMA (18:51)
[2022-11-28] VITALS (9 sets, daily range): BP systolic 98–140; BP diastolic 57–67; PULSE 56–86; RESP 13–22; TEMP 36.5–37; O2SAT 95–100; BMI 29.1
[2022-11-28] MEDS: Ketorolac Tromethamine 15 MG/ML VIAL IVPUSH (01:44)
[2022-11-28 03:50] LABS: COVID-19 Test Negative (Negative); IDNOW Serial# 9DB6401D
[2022-11-28 04:44] LABS: MANUAL DIFF FLAG NO
[2022-11-28 04:45] LABS: VBG Base Excess 3.3 mmol/L; VBG HCO3 26 mmol/L (22-26); VBG pCO2 37 mmHg; VBG pH 7.46 (7.32-7.43); VBG pO2 106 mmHg
[2022-11-28 04:47] LABS: Venous Blood Gas Refer to POC result
[2022-11-28 04:50] LABS: Basophils Percent Auto 0.1 % (0-2); Hemoglobin 13.2 g/dl (14.0-18.0); Imm Gran Abs Auto 0.21 X10*3/uL (0.00-0.03); Lymphocytes Absolute Auto 1.1 X10*3/uL (1.2-4.9); Mean Corpuscular Hemoglobin 29.6 pg (27.0-33.0); Mean Corpuscular Volume 89.7 fL (80.0-98.0); Monocytes Absolute Auto 1.1 X10*3/uL (0.1-1.2); Monocytes Percent Auto 5.3 % (2-11); Neutrophils Absolute Auto 18.7 x10*3/uL (2.0-8.3); Neutrophils Percent Auto 88.6 % (45-73); Platelet Count 134 X10*3/uL (160-400); Red Blood Count 4.46 X10*6/uL (4.60-5.80); Red Cell Distribution Width 13.9 % (11.0-16.0); White Blood Count 21.1 X10*3/uL (4.8-10.8)
[2022-11-28 05:17] LABS: Albumin Level 3.4 g/dL (3.5-5.0); Anion Gap 11 (12-20); Blood Urea Nitrogen 19 mg/dL (9-16); Calcium 8.9 mg/dL (8.4-10.2); Carbon Dioxide 22 mmol/L (22-29); Chloride 113 mmol/L (96-108); Creatinine Clr Calc Pharmacy 117.1; Estimated Glomerular Filt Rate > 60; Glucose Random 105 mg/dL (60-115); Magnesium 2.2 mg/dL (1.6-2.6); Phosphorus 3.8 mg/dL (2.7-4.5); Potassium 4.3 mmol/L (3.3-5.1); Sodium 142 mmol/L (135-145)
--- NOTE | 2022-11-28 07:01 | PM.EVENT ---
Event Note Date of Service: 11/28/22 Event Note: Follow-up on patient s/p admission to ICU for epiglottitis. Patient did well throughout the night with improvement in breathing as per nurse. When I observed patient he was sleeping lying down flat with no stridor or issues with breathing. Elective or emergent airway is not an issue at this time. Time Spent With Patient Time: Total time managing care of this patient today _15___ minutes.
[2022-11-28 08:33] LABS: C Reactive Protein 9.41 mg/dL (< or = 0.50)
[2022-11-28] MEDS: Nicotine 21 MG PATCH.TD24 TRANSDERMA (08:35)
[2022-11-28] MEDS: methylPREDNISolone Sod Succ 40 MG/ML VIAL IVPUSH (08:35)
--- NOTE | 2022-11-28 10:47 | P.PNIM_ITS ---
Subjective Subjective Date of Service: 11/28/22 Interval History: Feeling much better; speaking normally; no drooling; swallowing; breathing without stridor. Wishes to try to eat Review of Systems Review of Systems: Yes all other systems are reviewed and are negative Physical Exam Vital Signs: Vital Signs: Last Vital Signs Temp 98.4 F 11/28/22 07:52 Pulse 57 11/28/22 07:52 Resp 18 11/28/22 07:52 BP 116/59 L 11/28/22 07:52 Pulse Ox 98 11/28/22 07:52 O2 Del Method Room Air 11/28/22 07:52 FiO2 28 11/28/22 05:56 BMI result Body Mass Index 29.1 Gen: in no acute distress HEENT: sclera anicteric, moist mucus membranes Neck: supple, phonating normally, full ROM, no adenopathy Lungs: clear to auscultation bilaterally, no stridor Heart: regular rate and rhythm, no murmurs Abd: soft, non-tender, non-distended Ext: no edema Skin: warm/well-perfused Neuro: alert and oriented x3, no focal findings Psych: appropriate affect Objective Data Active Medications Heparin Sodium (Porcine) (Heparin Sodium,Porcine 5,000 Unit/Ml Vial) 5,000 unit SUBCUT Q8H [facility] Last Admin: 11/28/22 04:45 Dose: Not Given Documented By: FARHAD Non-Admin Reason: Patient Refused Ceftriaxone Sodium 1 gm/ (Sodium Chloride) 50 mls @ 100 mls/hr IV Q24H [facility] Last Infusion: 11/27/22 16:36 Dose: 100 mls/hr Documented By: FARHAD Ketorolac Tromethamine (Ketorolac Tromethamine 15 Mg/Ml Vial) 15 mg IVPUSH Q6H PRN PRN Reason: Pain, Moderate(Pain Scale 4-6) Last Admin: 11/28/22 01:44 Dose: 15 mg Documented By: FARHAD Methylprednisolone Sodium Succinate (Methylprednisolone Sod Succ 40 Mg/Ml Vial) 40 mg IVPUSH DAILY [facility] Last Admin: 11/28/22 08:35 Dose: 40 mg Documented By: SHAJI Nicotine (Nicotine 21 Mg Patch.Td24) 21 mg TRANSDERMA DAILY [facility] Last Admin: 11/28/22 08:35 Dose: 21 mg Documented By: SHAJI Labs 11/28/22 04:31 11/28/22 04:31 Labs: Laboratory Results - last 24 hr 11/27/22 11/27/22 11/27/22 09:46 10:01 13:51 MCV MCH MCHC RDW Plt Count MPV Immature Gran % (Auto) Neut % (Auto) Lymph % (Auto) [place] % (Auto) Eos % (Auto) Baso % (Auto) Lymph # (Auto) [place] # (Auto) Eos # (Auto) Baso # (Auto) Abs Immat Gran (auto) Absolute Neuts (auto) Absolute Nucleated RBC Nucleated RBC % (auto) VBG pH VBG pCO2 VBG pO2 VBG HCO3 VBG O2 Saturation VBG Base Excess Anion Gap 12 Estim Creat Clear Calc 112.9 Estimated GFR > 60 Random Glucose 82 Calcium 8.8 Phosphorus Magnesium C-Reactive Protein Albumin Urine Opiates Screen Not Detected Urine Fentanyl Screen Not Detected Ur Barbiturates Screen Not Detected Ur Phencyclidine Scrn Not Detected Ur Amphetamines Screen Not Detected U Benzodiazepines Scrn Not Detected Urine Cocaine Screen Not Detected U Marijuana (THC) Screen POSITIVE H Ethyl Alcohol < 10 COVID-19 ([facility]) Negative COVID-19 Clin Com See Note 11/28/22 11/28/22 11/28/22 04:31 04:31 04:38 MCV 89.7 MCH 29.6 MCHC 33.0 RDW 13.9 Plt Count 134 L MPV 12.0 Immature Gran % (Auto) 1.0 H Neut % (Auto) 88.6 H Lymph % (Auto) 5.0 L [place] % (Auto) 5.3 Eos % (Auto) 0.0 Baso % (Auto) 0.1 Lymph # (Auto) 1.1 L [place] # (Auto) 1.1 Eos # (Auto) 0.0 Baso # (Auto) 0.0 Abs Immat Gran (auto) 0.21 H Absolute Neuts (auto) 18.7 H Absolute Nucleated RBC 0.000 Nucleated RBC % (auto) 0.0 VBG pH 7.46 H VBG pCO2 37 VBG pO2 106 VBG HCO3 26 VBG O2 Saturation 100.0 VBG Base Excess 3.3 Anion Gap 11 L Estim Creat Clear Calc 117.1 Estimated GFR > 60 Random Glucose 105 Calcium 8.9 Phosphorus 3.8 Magnesium 2.2 C-Reactive Protein 9.41 H Albumin 3.4 L Urine Opiates Screen Urine Fentanyl Screen Ur Barbiturates Screen Ur Phencyclidine Scrn Ur Amphetamines Screen U Benzodiazepines Scrn Urine Cocaine Screen U Marijuana (THC) Screen Ethyl Alcohol COVID-19 ([facility]) COVID-19 Clin Com Assessment and Plan (1) Epiglottitis: Status: Acute Plan d#2 37yo M with recent upper respiratory infection admitted to ICU out of precaution due to epiglottitis + supraglottitis treated with IV diphenhydramine, IV famotidine, IV methylprednisolone, and nebulized racemic epinephrine observed in ICU and stepped down to IMC overnight # epiglottitis - ceftriaxone d#2 - continue steroids - ID consult - advance diet; 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 Quality Stroke Does the patient have a stroke diagnosis?: No VTE Prior VTE?: No VTE Risk Level:: Medical - moderate - high VTE Device Contraindication: Treatment Not Indicated VTE Drug Contraindication: N/A - Med Ordered
--- NOTE | 2022-11-28 11:21 | MHC.CM.PN ---
EMR REVIEWED, PT ADMITTED W/EPIGLOTTITIS/SUPRAGLOTTITIS AND STEP DOWN FROM ICU, CM MET W/PT WHO REPORTS HE LIVES ALONE, INDEP W/ALL CARE, DENIES USE OF DME/ HOME SERVICES AND REPORTS HE DOES HAVE A RIDE. PT VERIFIES HIS PCP IS AT [facility] HOWEVER DOES NOT KNOW THE NAME, PT DENIES BEING COVID VAXED AND PT EDUCATED ON AND DECLINES TO COMPLETE A HCP AT THIS TIME. ANTIC D/C HOME NO SERVICES W/PT ARRANGING TRANSPORT BY WEDNESDAY 11/29.
[2022-11-28] MEDS: cefTRIAXone sodium 1 GM in 0.9 % Sodium Chloride 50 ML IV (13:53)
--- NOTE | 2022-11-28 15:06 | P.DS_ITS ---
DS: Providers Provider Date of Service: 11/28/22 Date of admission: 11/27/22 12:47 Date of discharge: 11/28/22 Primary care physician: [facility] Consults: 11/28/22 07:55 Consult to Infectious Diseases Routine Consulting Provider: [facility] [place] [facility] [place] Infectious Disease Reason for consultation: epiglottitis DS: Diagnosis Discharge Diagnosis (1) Epiglottitis: Status: Acute DS: Summary Hospital Course Hospital Course: from H+P by admitting hospitalist Jonathan Sweet, 11/27/22: 37-year-old gentleman with underlying history of anxiety and several day history of upper respiratory symptoms being admitted for epiglottitis and airway watch.? In ER patient received systemic glucocorticoids, Benadryl, H2 blockers, and racemic nebulized epinephrine with some improvement in his symptoms.? On my examination he does not have stridor and is able to maintain normal oximetry. 37yo M with recent upper respiratory infection admitted to ICU out of precaution due to epiglottitis + supraglottitis treated with IV diphenhydramine, IV famotidine, IV methylprednisolone, and nebulized racemic epinephrine observed in ICU and stepped down to IMC overnight treated with ceftriaxone and steroids in the IMC diet advanced as his dysphonia and stridor resolved unfortunately, he decided to sign out of the hospital AGAINST MEDICAL ADVICE on 11/28/22 despite extensive counseling on the risks of doing so I prescribed him antibiotics and steroid taper but advised him to return to the hospital as soon as he decided to Time Spent with Patient Time attestation: Total time managing care of this patient today ___35_ minutes. Discharge coordination time: Greater than 30 minutes Quality: Safe Use of Opioids Does Pt have an Active Cancer Diagnosis on the Problem List?: No Quality: Stroke Does the patient have a stroke diagnosis?: No Physical Exam Vital Signs: Vital Signs: Last Vital Signs Temp 97.7 F 11/28/22 11:30 Pulse 71 11/28/22 11:30 Resp 16 11/28/22 11:30 BP 140/67 H 11/28/22 11:30 Pulse Ox 95 11/28/22 11:30 O2 Del Method Room Air 11/28/22 11:30 FiO2 28 11/28/22 05:56 BMI result Body Mass Index 29.1 Gen: in no acute distress HEENT: sclera anicteric, moist mucus membranes Neck: supple, phonating normally, full ROM, no adenopathy Lungs: clear to auscultation bilaterally, no stridor Heart: regular rate and rhythm, no murmurs Abd: soft, non-tender, non-distended Ext: no edema Skin: warm/well-perfused Neuro: alert and oriented x3, no focal findings Psych: appropriate affect DS: Data Data Completed and Pending Completed studies during hospitalization [Text1]: Laboratory Results WBC 21.1 X10*3/uL (4.8-10.8) H 11/28/22 04:31 RBC 4.46 X10*6/uL (4.60-5.80) L 11/28/22 04:31 Hgb 13.2 g/dl (14.0-18.0) L 11/28/22 04:31 Hct 40.0 % (42.0-52.0) L 11/28/22 04:31 MCV 89.7 fL (80.0-98.0) 11/28/22 04:31 MCH 29.6 pg (27.0-33.0) 11/28/22 04:31 MCHC 33.0 g/dl (31.0-36.0) 11/28/22 04:31 RDW 13.9 % (11.0-16.0) 11/28/22 04:31 Plt Count 134 X10*3/uL (160-400) L 11/28/22 04:31 MPV 12.0 fL (9.4-12.4) 11/28/22 04:31 Immature Gran % (Auto) 1.0 % (0.0-0.4) H 11/28/22 04:31 Neut % (Auto) 88.6 % (45-73) H 11/28/22 04:31 Lymph % (Auto) 5.0 % (20-40) L 11/28/22 04:31 [place] % (Auto) 5.3 % (2-11) 11/28/22 04:31 Eos % (Auto) 0.0 % (0-4) 11/28/22 04:31 Baso % (Auto) 0.1 % (0-2) 11/28/22 04:31 Lymph # (Auto) 1.1 X10*3/uL (1.2-4.9) L 11/28/22 04:31 [place] # (Auto) 1.1 X10*3/uL (0.1-1.2) 11/28/22 04:31 Eos # (Auto) 0.0 X10*3/uL (0.0-0.4) 11/28/22 04:31 Baso # (Auto) 0.0 X10*3/uL (0.0-0.2) 11/28/22 04:31 Abs Immat Gran (auto) 0.21 X10*3/uL (0.00-0.03) H 11/28/22 04:31 Absolute Neuts (auto) 18.7 x10*3/uL (2.0-8.3) H 11/28/22 04:31 Absolute Nucleated RBC 0.000 X10*3/uL (0.0-0.012) 11/28/22 04:31 Nucleated RBC % (auto) 0.0 /100WBC (0.0-0.2) 11/28/22 04:31 VBG pH 7.46 (7.32-7.43) H 11/28/22 04:38 VBG pCO2 37 mmHg 11/28/22 04:38 VBG pO2 106 mmHg 11/28/22 04:38 VBG HCO3 26 mmol/L (22-26) 11/28/22 04:38 VBG O2 Saturation 100.0 % 11/28/22 04:38 VBG Base Excess 3.3 mmol/L 11/28/22 04:38 Sodium 142 mmol/L (135-145) 11/28/22 04:31 Potassium 4.3 mmol/L (3.3-5.1) D 11/28/22 04:31 Chloride 113 mmol/L (96-108) H 11/28/22 04:31 Carbon Dioxide 22 mmol/L (22-29) 11/28/22 04:31 Anion Gap 11 (12-20) L 11/28/22 04:31 BUN 19 mg/dL (9-16) H 11/28/22 04:31 Creatinine 0.77 mg/dL (0.5-1.4) 11/28/22 04:31 Estim Creat Clear Calc 117.1 11/28/22 04:31 Estimated GFR > 60 11/28/22 04:31 Random Glucose 105 mg/dL (60-115) 11/28/22 04:31 Lactic Acid 0.7 mmol/L (0.5-2.0) 11/27/22 09:46 Calcium 8.9 mg/dL (8.4-10.2) 11/28/22 04:31 Phosphorus 3.8 mg/dL (2.7-4.5) 11/28/22 04:31 Magnesium 2.2 mg/dL (1.6-2.6) 11/28/22 04:31 C-Reactive Protein 9.41 mg/dL (< or = 0.50) H 11/28/22 04:31 Albumin 3.4 g/dL (3.5-5.0) L 11/28/22 04:31 Urine Opiates Screen Not Detected (Not Detect) 11/27/22 13:51 Urine Fentanyl Screen Not Detected (Not Detect) 11/27/22 13:51 Ur Barbiturates Screen Not Detected (Not Detect) 11/27/22 13:51 Ur Phencyclidine Scrn Not Detected (Not Detect) 11/27/22 13:51 Ur Amphetamines Screen Not Detected (Not Detect) 11/27/22 13:51 U Benzodiazepines Scrn Not Detected (Not Detect) 11/27/22 13:51 Urine Cocaine Screen Not Detected (Not Detect) 11/27/22 13:51 U Marijuana (THC) Screen POSITIVE (Not Detect) H 11/27/22 13:51 Ethyl Alcohol < 10 mg/dL 11/27/22 09:46 COVID-19 ([facility]) Negative (Negative) 11/27/22 10:01 COVID-19 Clin Com See Note 11/27/22 10:01 S. pyogenes GrpA COREY Negative (Negative) 11/27/22 07:19 Impressions Soft Tissue Neck CT 11/27/22 13:36 IMPRESSION: * There are imaging findings of epiglottitis and supraglottitis. * No soft tissue abscess or lymphadenopathy within the neck. * No new observations when compared to noncontrast exam of 11/27/2022. Discharge Plan Discharge Patient Disposition: Left Against Medical Advice Discharge Diagnosis: Epiglottitis/supraglottitis Left hospital against medical advice Referrals: [facility] [Primary Care Provider] - 1 Week Discharge Medications: New amoxicillin-pot clavulanate 875-125 mg tablet 1 tab PO BID Qty: 14 0RF prednisone 10 mg tablet See Rx Instructions .ROUTE .COMPLEX Qty: 20 0RF Rx Instructions: 40 mg daily x 2 days, then 30 mg daily x 2 days, then 20 mg daily x 2 days, then 10 mg daily x 2 days nicotine 21 mg/24 hr Patch 24 Hour 21 mg transdermal DAILY Qty: 30 0RF Continued multivitamin Tablet 1 tab PO DAILY ibuprofen 800 mg Tablet 800 mg PO TID PRN (Reason: Pain) omeprazole 20 mg tablet,delayed release (DR/EC) 20 mg PO DAILY@0630 PRN (Reason: Acid Reflux) Discharge Orders: Discharge Order (Routine); Ordered 11/28/22 Ordered By: Ashwini Lyn Diet: Advance to usual diet Activity on Discharge: As tolerated Care Plan Goals: Resolution of infection Health Concerns: Epiglottitis/supraglottitis Left hospital against medical advice Plan of Treatment: Return to hospital as soon as possible In the meanwhile, take prednisone [steroid] PLUS amoxicillin-clavulanate [antibiotic] as prescribed Assessment: See Discharge Summary.
== END 2022-11-28 15:22 | disposition left against medical advice (07) | DRG 113 ==
LOC: HO.ED 08:04 → HO.EDOVER 13:00 → HO.ICU 13:34 → HO.IMC 11-28 06:58
PROVIDERS: Emergency Medicine; Admitting Provider Internal Medicine Pulmonary Disease; Emergency Provider Emergency Medicine; PCP Registered Nurse; Visit Provider Family Medicine
DX: J05.10 Acute epiglottitis without obstruction (principal); F17.210 Nicotine dependence, cigarettes, uncomplicated; F41.9 Anxiety disorder, unspecified; Z71.6 Tobacco abuse counseling; Z20.822 Contact with and (suspected) exposure to COVID-19; Z79.899 Other long term (current) drug therapy
CPT/HCPCS: 36415; 70490; 70491; 80048; 80307; 82040; 82803; 83605; 83735; 84100; 85025; 86140; 87040; 87635; 87651; 92950; 94640; 99285; J0330; J0696; J1100; J1200; J1643; J1885; J2270; J2543; J2920; J2930; Q9967

== ENCOUNTER 2022-12-05 12:34 | Emergency (ER) | payer MEDICAID, SELFPAY ==
--- NOTE | ~2022-12-05 | CT_ITS ---
EXAMINATION: CT SOFT TISSUE NECK WITH CONTRAST CLINICAL INFORMATION: Epiglottitis COMPARISON: CT neck with contrast 11/27/2022 TECHNIQUE: Following the administration of 60 mL of Omnipaque 350 intravenous contrast, helical imaging was performed in the axial plane with generation of coronal and sagittal reformatted images. This CT examination was performed using dose optimization techniques as appropriate, variously including the following: *Automated exposure control. *Adjustment of mA and/or kV according to patient size (this includes techniques or standardized protocols for targeted exams where dose is matched to indication/reason for exam; i.e. extremities or head). *Use of iterative reconstruction technique. DLP: 524 mGy-cm. FINDINGS: Nasopharynx/skull base: The fat planes of the skull base and soft tissues of the nasopharynx are unremarkable. Trace right maxillary sinus mucosal thickening. The mastoid air cells are well aerated. The temporomandibular joints are normal. Chronic fracture of the left lamina papyracea. Suprahyoid and Infrahyoid neck: The oral cavity, and bilateral salivary gland tissues are unremarkable. There is asymmetric enlargement of the palatine tonsils with subcentimeter asymmetric hypodensity within the lower pole the right palatine tonsil measuring up to 1 cm (series 4 image 39). Compared to CT from 11/27/2022, decreased extent of submucosal edema of the supraglottic larynx involving the epiglottis, aryepiglottic folds, false focal cords. No new or progressive airway narrowing. Normal appearance of the infraglottic larynx and trachea. Thyroid: The thyroid gland is normal. Lymph nodes: There is no cervical chain lymphadenopathy. Lung apices: The partially visualized lung apices are clear. Vascular structures: No hemodynamically significant stenosis, dissection, or occlusion. Osseous structures: The osseous structures are intact without suspicious focal lesion. Left clavicle plate and screw fixation. Mild multilevel cervical spondylosis. Other: The imaged portions of the brain parenchyma are unremarkable. CT/CT soft tissue neck w IV con IMPRESSION: 1. Findings suggestive of improving supraglottitis/epiglottitis with decreased submucosal edema involving the epiglottis, aryepiglottic folds, and false vocal cords. 2. Relatively symmetric enlargement of the palatine tonsils for which superimposed tonsillitis is not excluded. There is an approximately 1 cm region of hypoenhancement within the lower pole of the right palatine tonsil which could represent intratonsillar phlegmon/early abscess.
[2022-12-05 13:15] VITALS: BP 142/89; PULSE 79; RESP 18; TEMP 36.1; O2SAT 99; BMI 23.8
[2022-12-05 14:04] LABS: MANUAL DIFF FLAG NO
[2022-12-05 14:19] LABS: Basophils Absolute Auto 0.1 X10*3/uL (0.0-0.2); Basophils Percent Auto 0.6 % (0-2); Eosinophils Absolute Auto 0.2 X10*3/uL (0.0-0.4); Eosinophils Percent Auto 1.6 % (0-4); Hematocrit 47.6 % (42.0-52.0); Hemoglobin 15.4 g/dl (14.0-18.0); Imm Gran Abs Auto 0.06 X10*3/uL (0.00-0.03); Imm Gran Pct Auto 0.6 % (0.0-0.4); Lymphocytes Absolute Auto 2.4 X10*3/uL (1.2-4.9); Lymphocytes Percent Auto 21.9 % (20-40); Mean Corpuscular HGB Conc 32.4 g/dl (31.0-36.0); Mean Corpuscular Hemoglobin 29.2 pg (27.0-33.0); Mean Corpuscular Volume 90.2 fL (80.0-98.0); Mean Platelet Volume 11.1 fL (9.4-12.4); Monocytes Absolute Auto 0.5 X10*3/uL (0.1-1.2); Neutrophils Absolute Auto 7.6 x10*3/uL (2.0-8.3); Neutrophils Percent Auto 70.3 % (45-73); Platelet Count 203 X10*3/uL (160-400); Red Blood Count 5.28 X10*6/uL (4.60-5.80); Red Cell Distribution Width 13.9 % (11.0-16.0); White Blood Count 10.8 X10*3/uL (4.8-10.8)
[2022-12-05 14:20] LABS: INTERNATIONAL NORM RATIO 0.9 (0.9-1.1); Prothrombin Time 10.8 SEC (10.0-13.1)
[2022-12-05 14:21] LABS: Lactic Acid 0.8 mmol/L (0.5-2.0)
[2022-12-05] MEDS: dexAMETHasone sod phosphate 4 MG/ML VIAL 6 MG IVPUSH (14:31)
[2022-12-05 14:56] LABS: Anion Gap 9 (12-20)
[2022-12-05 15:01] LABS: Alanine Aminotransferase 14 U/L (0-40); Albumin Level 3.7 g/dL (3.5-5.0); Alkaline Phosphatase 50 U/L (39-117); Aspartate Amino Transferase 12 U/L (5-37); Bilirubin Direct 0.1 mg/dL (0.0-0.5); Bilirubin Total 0.5 mg/dL (0.0-1.0); Blood Urea Nitrogen 10 mg/dL (9-16); Calcium 9.1 mg/dL (8.4-10.2); Carbon Dioxide 27 mmol/L (22-29); Chloride 110 mmol/L (96-108); Creatinine Clr Calc Pharmacy 116.7; Estimated Glomerular Filt Rate > 60; Glucose Random 92 mg/dL (60-115); Potassium 4.1 mmol/L (3.3-5.1); Sodium 142 mmol/L (135-145); Total Protein 6.3 g/dL (6.5-8.0)
--- NOTE | 2022-12-05 15:06 | ED_ITS ---
HPI - General Adult General Chief complaint: Dyspnea Stated complaint: Diff Breathing Throat Pain Time Seen by Provider: 12/05/22 13:21 Source: patient Mode of arrival: ambulatory Limitations: no limitations History of Present Illness HPI narrative: Patient comes to the emergency room complaining of an ongoing sore throat. Patient states left against medical advise from the hospital approximately 5 days ago, patient was being treated for epiglottitis. Patient was discharged with Augmentin and prednisone, patient finished a course of antibiotics at home. Patient denies any chest pain or shortness of breath. Patient states that he initially was doing well, yesterday he started having sore throat again. Denies fever chills Related Data Home Medications Medication Instructions Recorded Confirmed omeprazole 20 mg tablet,delayed 20 mg PO DAILY@0630 PRN Acid Reflux 05/04/20 11/27/22 release ibuprofen 800 mg tablet 800 mg PO TID PRN Pain 11/27/22 11/27/22 multivitamin 1 tab PO DAILY 11/27/22 11/27/22 Previous Rx's Medication Instructions Recorded amoxicillin 875 mg-potassium 1 tab PO BID #14 tabs 11/28/22 clavulanate 125 mg tablet prednisone 10 mg tablet See Rx Instructions .Route 11/28/22 .COMPLEX #20 tabs Lactobacillus rhamnosus GG 15 1 cap PO DAILY #20 caps 12/05/22 billion cell sprinkle capsule (Culturelle) clindamycin HCl 300 mg capsule 300 mg PO TID 10 days #30 caps 12/05/22 Allergies Allergy/AdvReac Type Severity Reaction Status Date / Time prednisone [PREDNISONE] Allergy Unknown UNKNOWN Verified 12/05/22 13:15 Review of Systems Review of Systems: Constitutional : No Weight loss, No Fever, No Chills, No Night Sweats, No Fatigue, No Malaise ENT/Mouth : No Hearing loss, No Ear Pain, No Nasal Congestion, No Sinus Pain, No Hoarseness, complaining of sore throat, No Rhinorrhea, No Swallowing Difficulty but hurts swallowing Eyes: No Eye Pain, No Swelling, No Redness, No Foreign Body, No Discharge, No Vision Changes Cardiovascular : No Chest Pain, No SOB, No Dyspnea on Exertion, No Orthopnea, No Edema, No Palpitations Respiratory : No Cough, No Sputum, No Wheezing, No Smoke Exposure, No Dyspnea Gastrointestinal : No Nausea, No Vomiting, No Diarrhea, No Constipation, No abdominal Pain, No Hematochezia, No Melena Genitourinary : no irregular bleeding, No Dysuria, No Urinary Frequency, No Hematuria, No Urinary Incontinence, No Urgency, No Flank Pain, No Urinary Flow Changes, No Hesitancy Musculoskeletal : No joint pain, No Myalgias, No Joint Swelling Skin : No Skin Lesions, No rash Neuro : No Weakness, No Numbness, No Paresthesias, No Loss of Consciousness, No Dizziness, No Headache Psych : No Anxiety/Panic, No Depression, No SI/HI/AH/VH, No Social Issues, Heme/Lymph: No Bruising, No Bleeding,No Lymphadenopathy Endocrine : No Polyuria, No Polydipsia, No Temperature Intolerance [facility] Past Medical History Medical History Anxiety Family history of colon cancer Surgical History History of shoulder surgery History of surgical removal of pilonidal cyst Social History Social History Household Members: None Housing: House Do you presently have visiting nurse or other home services: No Alcohol intake: never Patient Tobacco Use Status: Current everyday Tobacco user Tobacco use type: Cigarette Cigarette Packs Per Day: 1 Cigarettes Per Day: 20.0 Years Smoked: 20 Smoked in Last 30 Days: No e-Cigarette/Vaping Use: Currently Using Use of substances other than those prescribed or required for medical reasons: No Substance Use Type: Marijuana Advance Directives: No service: No Current occupational status: unemployed Physical Exam ED Vital Signs: Vital Signs - 24 hr 12/05/22 13:15 12/05/22 18:24 Temperature 97.0 F Pulse Rate 79 56 Respiratory Rate 18 Blood Pressure 142/89 H 112/68 Pulse Oximetry 99 98 Oxygen Delivery Method Room Air Room Air BMI result Body Mass Index 23.8 Const Other: Appearance: Alert. Oriented X3. No acute distress. Well-appearing Eyes: Pupils equal, round and reactive to light. ENT: Pharynx erythematous, uvula mildly erythematous, not deviated tonsils enlarged, no abscess visualized Neck: Normal inspection. Neck supple. No lymph nodes noted. No crepitus CVS: Normal heart rate and rhythm. Pulses normal. Normal S1 and S2 Respiratory: No respiratory distress. Breath sounds normal. No Wheezing. No rales Abdomen: Soft and nontender. No rigidity. No distention. Skin: Skin warm and dry. Normal skin color. Normal skin turgor. Extremities: No lower extremity edema. No Lacerations. No Rash Neuro: Oriented X 3. No motor deficit. No sensory deficit. Moving all extremities. No slurred speech. CN 2 through 12 grossly intact Psych: calm, cooperative, normal affect Course Course Course Narrative: -patient left against medical advice of days ago. -we will obtain labs again, patient given 1 dose of Decadron IV. Yesterday patient finished a course of antibiotics, Augmentin. -CT scan of the soft tissue of the neck pending Medications Administered Discontinued Medications Generic Name Dose Route Start Last Admin Trade Name Freq PRN Reason Stop Dose Admin Dexamethasone Sodium Phosphate 6 mg 12/05/22 14:07 12/05/22 14:31 Dexamethasone Sod Phosphate 4 Mg/Ml Vial IVPUSH 12/05/22 14:08 6 mg ONCE ONE Administration Clindamycin Phosphate 300 mg in 50 mls @ 100 mls/hr 12/05/22 19:49 12/05/22 20:03 Cleocin IV 12/05/22 20:18 100 mls/hr ONCE ONE Administration Iohexol 100 ml 12/05/22 15:49 12/05/22 15:49 Iohexol 350 Mg/Ml 100 Ml Infus..Btl IV 12/05/22 15:50 60 ml ONCE ONE Administration Medical Decision Making Medical Decision Making MDM Narrative: -patient's white blood cell count within normal limits, much better than on previous visit -I discussed the CT scan with the patient, patient have a phlegm in versus early abscess. Epiglottitis, supraglottitis is improving from patient's previous visit to the hospital -admission was considered and offered, Dr. Buchanan accepted the patient and he also contacted Dr. Montero . -patient respectfully declined admission, states he has a sick daughter at home and needs to take her to the appointments. Patient states that he cannot miss work tomorrow. Patient agreeable that if anything changes, he will return immediately. -patient's vitals normal, sepsis not suspected, patient talking in full sentences, airway compromise not suspected Admission/Observation Consideration of admission/observation: Escalation of care including admission/observation considered Consult Healthcare Provider Management of the patient was discussed with: Hospitalist and Kick Plate Installer Lab Data MDM Lab Attestation statement: I reviewed the patient's lab results. 12/05/22 13:57 12/05/22 14:37 Labs: Lab Results 12/05/22 12/05/22 12/05/22 Range/Units 13:57 13:57 13:57 WBC 10.8 (4.8-10.8) X10*3/uL RBC 5.28 (4.60-5.80) X10*6/uL Hgb 15.4 (14.0-18.0) g/dl Hct 47.6 (42.0-52.0) % MCV 90.2 (80.0-98.0) fL MCH 29.2 (27.0-33.0) pg MCHC 32.4 (31.0-36.0) g/dl RDW 13.9 (11.0-16.0) % Plt Count 203 D (160-400) X10*3/uL MPV 11.1 (9.4-12.4) fL Immature Gran % (Auto) 0.6 H (0.0-0.4) % Neut % (Auto) 70.3 (45-73) % Lymph % (Auto) 21.9 (20-40) % Menard % (Auto) 5.0 (2-11) % Eos % (Auto) 1.6 (0-4) % Baso % (Auto) 0.6 (0-2) % Lymph # (Auto) 2.4 (1.2-4.9) X10*3/uL Menard # (Auto) 0.5 (0.1-1.2) X10*3/uL Eos # (Auto) 0.2 (0.0-0.4) X10*3/uL Baso # (Auto) 0.1 (0.0-0.2) X10*3/uL Abs Immat Gran (auto) 0.06 H (0.00-0.03) X10*3/uL Absolute Neuts (auto) 7.6 (2.0-8.3) x10*3/uL Absolute Nucleated RBC 0.000 (0.0-0.012) X10*3/uL Nucleated RBC % (auto) 0.0 (0.0-0.2) /100WBC PT 10.8 (10.0-13.1) SEC INR 0.9 (0.9-1.1) Sodium (135-145) mmol/L Potassium (3.3-5.1) mmol/L Chloride (96-108) mmol/L Carbon Dioxide (22-29) mmol/L Anion Gap (12-20) BUN (9-16) mg/dL Creatinine (0.5-1.4) mg/dL Estim Creat Clear Calc Estimated GFR Random Glucose (60-115) mg/dL Lactic Acid 0.8 (0.5-2.0) mmol/L Calcium (8.4-10.2) mg/dL Total Bilirubin (0.0-1.0) mg/dL Direct Bilirubin (0.0-0.5) mg/dL AST (5-37) U/L ALT (0-40) U/L Alkaline Phosphatase (39-117) U/L Total Protein (6.5-8.0) g/dL Albumin (3.5-5.0) g/dL Urine Opiates Screen (Not Detect) Urine Fentanyl Screen (Not Detect) Ur Barbiturates Screen (Not Detect) Ur Phencyclidine Scrn (Not Detect) Ur Amphetamines Screen (Not Detect) U Benzodiazepines Scrn (Not Detect) Urine Cocaine Screen (Not Detect) U Marijuana (THC) Screen (Not Detect) 12/05/22 12/05/22 Range/Units 14:37 19:06 WBC (4.8-10.8) X10*3/uL RBC (4.60-5.80) X10*6/uL Hgb (14.0-18.0) g/dl Hct (42.0-52.0) % MCV (80.0-98.0) fL MCH (27.0-33.0) pg MCHC (31.0-36.0) g/dl RDW (11.0-16.0) % Plt Count (160-400) X10*3/uL MPV (9.4-12.4) fL Immature Gran % (Auto) (0.0-0.4) % Neut % (Auto) (45-73) % Lymph % (Auto) (20-40) % Menard % (Auto) (2-11) % Eos % (Auto) (0-4) % Baso % (Auto) (0-2) % Lymph # (Auto) (1.2-4.9) X10*3/uL Menard # (Auto) (0.1-1.2) X10*3/uL Eos # (Auto) (0.0-0.4) X10*3/uL Baso # (Auto) (0.0-0.2) X10*3/uL Abs Immat Gran (auto) (0.00-0.03) X10*3/uL Absolute Neuts (auto) (2.0-8.3) x10*3/uL Absolute Nucleated RBC (0.0-0.012) X10*3/uL Nucleated RBC % (auto) (0.0-0.2) /100WBC PT (10.0-13.1) SEC INR (0.9-1.1) Sodium 142 (135-145) mmol/L Potassium 4.1 (3.3-5.1) mmol/L Chloride 110 H (96-108) mmol/L Carbon Dioxide 27 (22-29) mmol/L Anion Gap 9 L (12-20) BUN 10 (9-16) mg/dL Creatinine 0.83 (0.5-1.4) mg/dL Estim Creat Clear Calc 116.7 Estimated GFR > 60 Random Glucose 92 (60-115) mg/dL Lactic Acid (0.5-2.0) mmol/L Calcium 9.1 (8.4-10.2) mg/dL Total Bilirubin 0.5 (0.0-1.0) mg/dL Direct Bilirubin 0.1 (0.0-0.5) mg/dL AST 12 (5-37) U/L ALT 14 (0-40) U/L Alkaline Phosphatase 50 (39-117) U/L Total Protein 6.3 L (6.5-8.0) g/dL Albumin 3.7 (3.5-5.0) g/dL Urine Opiates Screen Not Detected (Not Detect) Urine Fentanyl Screen Not Detected (Not Detect) Ur Barbiturates Screen Not Detected (Not Detect) Ur Phencyclidine Scrn Not Detected (Not Detect) Ur Amphetamines Screen Not Detected (Not Detect) U Benzodiazepines Scrn Not Detected (Not Detect) Urine Cocaine Screen Not Detected (Not Detect) U Marijuana (THC) Screen POSITIVE H (Not Detect) Radiology Impression Discussion of test interpretation with radiology: I have reviewed the radiologist's reading. Radiologist Impression: FINDINGS: Nasopharynx/skull base: The fat planes of the skull base and soft tissues of the nasopharynx are unremarkable. Trace right maxillary sinus mucosal thickening. The mastoid air cells are well aerated. The temporomandibular joints are normal. Chronic fracture of the left lamina papyracea. Suprahyoid and Infrahyoid neck: The oral cavity, and bilateral salivary gland tissues are unremarkable. There is asymmetric enlargement of the palatine tonsils with subcentimeter asymmetric hypodensity within the lower pole the right palatine tonsil measuring up to 1 cm (series 4 image 39). Compared to CT from 11/27/2022, decreased extent of submucosal edema of the supraglottic larynx involving the epiglottis, aryepiglottic folds, false focal cords. No new or progressive airway narrowing. Normal appearance of the infraglottic larynx and trachea. Thyroid: The thyroid gland is normal. Lymph nodes: There is no cervical chain lymphadenopathy. Lung apices: The partially visualized lung apices are clear. Vascular structures: No hemodynamically significant stenosis, dissection, or occlusion. Osseous structures: The osseous structures are intact without suspicious focal lesion. Left clavicle plate and screw fixation. Mild multilevel cervical spondylosis. Other: The imaged portions of the brain parenchyma are unremarkable. CT/CT soft tissue neck w IV con IMPRESSION: ? 1.? Findings suggestive of improving supraglottitis/epiglottitis with decreased submucosal edema involving the epiglottis, aryepiglottic folds, and false vocal cords. ? 2.? Relatively symmetric enlargement of the palatine tonsils for which superimposed tonsillitis is not excluded. There is an approximately 1 cm region of hypoenhancement within the lower pole of the right palatine tonsil which could represent intratonsillar phlegmon/early abscess. Discharge Plan Discharge Clinical Impression: Acute tonsillitis Patient Disposition: Home, Self-Care Instructions: Tonsillitis (ED) Additional Instructions: Please follow-up with your primary care physician tomorrow. If you have any worsening or new symptoms, please return to the emergency room or call 911 Prescriptions: New clindamycin HCl 300 mg capsule 300 mg PO TID 10 Days Qty: 30 0RF Culturelle 15 billion cell capsule, sprinkle 1 cap PO DAILY Qty: 20 0RF No Action multivitamin Tablet 1 tab PO DAILY ibuprofen 800 mg Tablet 800 mg PO TID PRN (Reason: Pain) amoxicillin-pot clavulanate 875-125 mg tablet 1 tab PO BID Qty: 14 0RF prednisone 10 mg tablet See Rx Instructions .ROUTE .COMPLEX Qty: 20 0RF Rx Instructions: 40 mg daily x 2 days, then 30 mg daily x 2 days, then 20 mg daily x 2 days, then 10 mg daily x 2 days omeprazole 20 mg tablet,delayed release (DR/EC) 20 mg PO DAILY@0630 PRN (Reason: Acid Reflux)
[2022-12-05] MEDS: iohexoL 350 MG/ML 100 ML INFUS..BTL IV (15:49)
[2022-12-05 18:24] VITALS: BP 112/68; PULSE 56; O2SAT 98
[2022-12-05 19:26] LABS: Amphetamine Screen Urine Not Detected (Not Detect); Barbiturates, Urine Not Detected (Not Detect); Benzodiazepines Screen Urine Not Detected (Not Detect); Cannabinoid Screen Urine POSITIVE (Not Detect); Cocaine Screen Urine Not Detected (Not Detect); Fentanyl, urine Not Detected (Not Detect); Opiate Screen Urine Not Detected (Not Detect); Phencyclidine Screen Urine Not Detected (Not Detect)
[2022-12-05] MEDS: Clindamycin Phosphate/D5W 300 MG/50 ML PIGGYBACK 100 MG IV (20:03)
--- NOTE | 2022-12-05 20:06 | PC.NURSE ---
pt assessed anxious, medicated with antibiotic
== END 2022-12-05 21:20 | disposition home or self-care (01) ==
PROVIDERS: Emergency Provider Emergency Medicine; PCP Registered Nurse
DX: J03.90 Acute tonsillitis, unspecified (principal); R06.02 Shortness of breath; M54.2 Cervicalgia; F17.210 Nicotine dependence, cigarettes, uncomplicated; Z71.6 Tobacco abuse counseling; Z79.899 Other long term (current) drug therapy
CPT/HCPCS: 36415; 70491; 80048; 80076; 80307; 83605; 85025; 85610; 87040; 96365; 96375; 99284; J1100; Q9967

== ENCOUNTER 2023-04-10 10:37 | Outpatient (REF) | payer MEDICAID, SELFPAY ==
--- NOTE | ~2023-04-10 | US_ITS ---
EXAMINATION: US SOFT TISSUE HEAD/NECK CLINICAL INFORMATION: Left scalp lump. COMPARISON: None available. TECHNIQUE: Linear transducer ramsey-scale and color Doppler examination with attention to the region of concern in the back of the head on the left. FINDINGS: Targeted ultrasound images were obtained by the merchandise flow associate of the area of concern as indicated by the patient in left back of head-merchandise flow associate states question sternocleidomastoid area; however, radiologist was not in attendance to confirm this location. Radiologist was not in attendance. Images were later provided for interpretation. FINDINGS: There is a 2.6 x 0.4 x 2.9 cm wider than tall, heterogeneous, hypoechoic mass with well-circumscribed margins. No internal vascularity is demonstrated. US/US soft tiss head and/or neck IMPRESSION: 2.9 cm wider than tall, heterogeneous, hypoechoic mass with well-circumscribed margins in the area of concern indicated by the patient to the merchandise flow associate in the posterior left head. Recommend correlation with clinical exam to determine further management. CT scan or MRI recommended for further evaluation.
== END 2023-04-10 10:38 | disposition home or self-care (01) ==
LOC: HO.HMGCX 10:37
PROVIDERS: PCP Registered Nurse; Visit Provider Registered Nurse
DX: D17.0 Benign lipomatous neoplasm of skin and subcutaneous tissue of head, face and neck (principal)
CPT/HCPCS: 76536

== ENCOUNTER 2024-07-29 22:37 | Emergency (ER) | payer MEDICAID, SELFPAY ==
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
[2024-07-29 22:48] VITALS: BP 120/76; PULSE 88; RESP 18; TEMP 36.8; O2SAT 95; BMI 24.3
[2024-07-30 01:46] VITALS: BP 107/72; PULSE 63; RESP 16; TEMP 36.8; O2SAT 100
[2024-07-30 03:57] VITALS: BP 115/73; PULSE 71; RESP 18; TEMP 36.8; O2SAT 98
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
[2024-07-30 04:37] VITALS: BP 119/90; PULSE 53; RESP 20; TEMP 36.6; O2SAT 97
[2024-07-30 04:51] VITALS: BP 119/90; PULSE 53; RESP 20; TEMP 36.6; O2SAT 97
== END 2024-07-30 04:52 | disposition home or self-care (01) ==
PROVIDERS: Emergency Provider Emergency Medicine
DX: M25.511 Pain in right shoulder (principal)
CPT/HCPCS: 73030; 99283; 99284

== ENCOUNTER → 2024-07-29 23:25 | Outpatient (BNV) | payer MEDICAID, SELFPAY | PROVIDERS: Visit Provider General Practice | DX: M19.011 Primary osteoarthritis, right shoulder (principal) | CPT/HCPCS: 73030 ==

== ENCOUNTER 2025-02-16 19:58 | Emergency (ER) | payer MEDICAID, SELFPAY ==
[2025-02-16 20:04] VITALS: BP 126/67; PULSE 70; RESP 17; TEMP 36.6; O2SAT 98; BMI 21.7
--- NOTE | 2025-02-16 20:06 | ED_ITS ---
HPI - General Adult General Chief complaint: Eye Problems Stated complaint: right eye injury Time Seen by Provider: 02/16/25 20:08 Source: patient Mode of arrival: ambulatory Limitations: no limitations History of Present Illness ED Provider: Isabela Hill PA-C HPI narrative: Patient is a 39 year old assigned male at with a history of anxiety presenting to the emergency department today with a right upper eye lid stye. Patient states that over the last 3 weeks he has had a right upper eye lid stye that he feels like is not getting better. Patient states that a friend of his had something similar and was given a cream that made it better in like 2 days . Patient denies any other complaints at this time. Onset (ago): week(s) (3) Location: eyes and right Related Data Home Medications ?Medication ?Instructions ?Recorded ?Confirmed omeprazole 20 mg tablet,delayed 20 mg PO DAILY@0630 CT N Acid Reflux 05/04/20 11/27/22 release ibuprofen 800 mg tablet 800 mg PO TID PRN Pain 11/2711/27/22 multivitamin 1 tab PO DAILY 11/27/22 0611/14 Previous Rx's ?Medication ?Instructions ?Recorded amoxicillin 875 mg-potassium 1 tab PO BID #14 tabs 12/15 clavulanate 125 mg tablet prednisone 10 mg tablet See Rx Instructions .Route 0 11/28/22 .COMPLEX #20 tabs Lactobacillus rhamnosus GG 15 1 cap PO DAILY #20 caps 12/05/22 billion cell sprinkle capsule (Culturelle) clindamycin HCl 300 mg capsule 300 mg PO TID 10 days # 30 caps 12/05/22 ibuprofen 600 mg tablet 600 mg PO Q8H PRN fever or p ain 07/30/24 #20 tabs erythromycin 5 mg/gram (0.5 %) eye 0.5 inch ophthalmic (eye) Q4H #3.5 02/16/25 ointment grams Allergies Allergy/AdvReac Type Severity Reaction Status Date / Time No Known Allergies Allergy Verified 02/16/25 20:05 Review of Systems Constitutional: Constitutional: Reports as per HPI Eyes: Comments: right upper eye lid stye ENT: Reports as per HPI Cardiovascular: Cardiovascular: Reports as per HPI Respiratory: Respiratory: Reports as per HPI Gastrointestinal: Gastrointestinal: Reports as per HPI Genitourinary: Genitourinary: Reports as per HPI Musculoskeletal: Musculoskeletal: Reports as per HPI Integumentary/Breasts: Skin/Breast: Reports as per HPI Neurologic: Reports as per HPI Psychiatric: Psychiatric: Reports as per HPI Endocrine: Endocrine: Reports as per HPI Hematologic/Lymphatic: Hematologic/Lymphatic: Reports as per HPI Allergic/Immunologic: Allergic/Immunologic: Reports as per HPI [facility] Past Medical History Attestation statement: The following information was validated with the patient. Source: old records reviewed and nursing notes reviewed Medical History Family history of colon cancer Anxiety Surgical History History of shoulder surgery History of surgical removal of pilonidal cyst Social History Social History Household Members: None Housing: House Do you presently have visiting nurse or other home services: No Alcohol intake: never Patient Tobacco Use Status: Current everyday Tobacco user Tobacco use type: Cigarette Cigarette Packs Per Day: 1 Cigarettes Per Day: 20.0 Years Smoked: 20 e-Cigarette/Vaping Use: Currently Using Substance Use Type: Marijuana Advance Directives: No Advance Directives Information Provided: Yes Do you have a plan to hurt others: No Plan service: No Current occupational status: unemployed Physical Exam ED Vital Signs: Vital Signs - 24 hr 02/16/25 20:04 Temperature 97.8 F Pulse Rate 70 Respiratory Rate 17 Blood Pressure 126/67 Pulse Oximetry 98 Oxygen Delivery Method Room Air BMI result Body Mass Index 21.7 Const General: cooperative, no acute distress, alert and awake Nutritional Appearance: well nourished Orientation/consciousness: patient oriented x3 HENMT Head: Yes normal to inspection and Yes atraumatic Ears: hearing grossly normal bilaterally and external ears normal General nose exam: Normal external nose present, no nasal discharge noted and no epistaxis Face and sinus: Yes normal facial exam, No abrasion and No laceration Mouth: Normal oral and palatal mucosa present, no drooling and no muffled voice Eyes Other: small stye present to the more medial central portion of the upper eye lid - no open areas, no drainage Conjunctivae: conjunctivae normal Pupils: Equal, round and reactive pupils present EOM: EOMs intact bilaterally Neck Neck: Yes normal visual inspection and Yes full ROM Resp Effort & Inspection: normal respiratory effort and able to speak in complete sentences Neuro General: patient oriented x3, moves all extremities and CN's II-XI intact bilaterally Cranial nerves: Yes Equal, round and reactive pupils present Cognition (Neuro): normal cognition Extrem General: Yes normal to inspection, Yes full ROM and Yes capillary refill normal Psych Appearance: grossly normal Mental Status: mental status grossly normal Affect: normal affect Attitude: cooperative Thought process: Normal thought process present Thought content: Normal thought content present Insight: Good insight present (Psych) Medical Decision Making Medical Decision Making MDM Narrative: Patient is a 39 year old assigned male at with a history of anxiety presenting to the emergency department today with a right upper eye lid stye. Patient's physical exam was as noted in the physical exam portion of this note and consistent with a stye. I explained my physical exam findings to the patient. I answered all questions asked by the patient. The patient requested that I open the area and I explained to the patient that this is not something that is routinely opened, especially in an emergency department setting, and if attempted could lead to serious complications involving his eyelid. I explained to the patient that the mainstay of treatment is warm compresses to the area and that I would prescribe an erythromycin ointment to sooth the inner part of his eye where the stye was rubbing at times. Patient verbalized understanding of this. I stressed the importance of the patient taking his medication as directed (either prescribed or as the over the counter packaging recommends). I stressed the importance of the patient following up with his primary care provider. I stressed the importance of the patient returning to the emergency department immediately if his symptoms were to worsen or if he were to develop any dizziness, shortness of breath, difficulty breathing, chest pain, blurry vision, loss of vision, nausea, vomiting, abdominal pain, fever, chills, back pain, or any other complaints. Patient verbalized agreement and understanding with this treatment plan and discharge. Differential Diagnosis Differential Diagnoses: The differential diagnosis associated with the presentation includes Stye Admission/Observation Consideration of admission/observation: Escalation of care including admission/observation considered Patient would have been admitted to the hospital had his clinical presentation warranted hospital admission. Prescription Management I considered prescription management with: Antibiotic (patient prescribed erythromycin ointment as noted in the MDM Rationale portion of this note.) Discharge Plan Discharge Clinical Impression: Stye Qualifiers: Laterality: right Eyelid: upper Qualified Code(s): H00.011 - Hordeolum externum right upper eyelid Patient Disposition: Home, Self-Care Instructions: [place] (ED) Additional Instructions: Apply warm compresses to the area. Use your ointment as prescribed. IF you are prescribed home medications and/or you are taking over the counter medications at home - it is very important you continue to do so as prescribed / directed unless told otherwise. Follow up with a primary care provider. Return to the emergency department imm ediately if your symptoms worsen or if you develop any numbness, tingling, dizziness, shortness of breath, difficulty breathing, chest pain, blurry vision, loss of vision, nausea, vomiting, abdominal pain, fever, chills, back pain, or any other complaints. If you do not have a primary care provider - call any of the below numbers to establish and follow up with a primary care provider. [facility] [place] [place] ([place]) [phone] [place] [address], [address] [facility] [place] [facility] Primary Care ([address] [place]) [phone] [place] [address], [address] [facility], [address] [facility] [place] Care ([address] [place]) [phone] [place] [address], [address] [facility], [address] [facility] [place] Primary Care ([place]) [phone] [place] [address], [address] [facility], [address] [facility] [place] Family Medicine [phone] [address] [facility], [address] Please see the information below about our Patient Portal. If you are not yet enrolled in the [facility] Patient Portal, you will receive an enrollment email invitation following your visit to any [facility] [place] [place] care setting. You may also self-enroll in the Patient Portal by visiting our website: [email or web address] The following information is required to access the Patient Portal: - Your [facility] [place] Medical Record Number - Your personal home email address (must match what is in your electronic medical record, Registration staff can assist with this) - Name - Date of Capabilities of the Patient Portal: - Message some providers - View upcoming appointments - Access your health summary, medical history, and visit history - View current conditions and allergies - View procedure and lab results - View your medications, including guidelines, side effects, and precautions - Complete pre-appointment questionnaires requested by your provider - Ready summary reports of your office visits and procedures To access the Patient Portal Mobile [employer], follow these directions: - Search [employer] in the [employer] Store or [employer] Store - Download the [employer] - Search for [facility] - Enter your login/password Prescriptions: New erythromycin 5 mg/gram (0.5 %) ointment 0.5 inch ophthalmic (eye) Q4H Qty: 3.5 0RF No Action multivitamin Tablet 1 tab PO DAILY ibuprofen 800 mg Tablet 800 mg PO TID PRN (Reason: Pain) amoxicillin-pot clavulanate 875-125 mg tablet 1 tab PO BID Qty: 14 0RF prednisone 10 mg tablet See Rx Instructions .ROUTE .COMPLEX Qty: 20 0RF Rx Instructions: 40 mg daily x 2 days, then 30 mg daily x 2 days, then 20 mg daily x 2 days, then 10 mg daily x 2 days clindamycin HCl 300 mg capsule 300 mg PO TID 10 Days Qty: 30 0RF Culturelle 15 billion cell capsule, sprinkle 1 cap PO DAILY Qty: 20 0RF ibuprofen 600 mg tablet 600 mg PO Q8H PRN (Reason: fever or pain) Qty: 20 0RF omeprazole 20 mg tablet,delayed release (DR/EC) 20 mg PO DAILY@0630 PRN (Reason: Acid Reflux) Discharge Date/Time: 02/16/25 20:23 Print Language: Chadian
--- OUTSIDE RECORDS SUMMARY | 2025-02-16 20:21 | XMS_ITS | Clinical Summary ---
Author Organization [employer] [facility] ity Address [address] [place] [address] Care Team Providers Care Bar Tacker Name Role Phone Unavailable Primary Care Provider Unavailabl e Social History Tobacco Use Types Packs/Day Years Used Date Smoking Tobacco: Never Assessed Sex and Gender Information Value Date Recorded Sex Assigned at Not on file Legal Sex Male 1:30 AM EST Gender Identity Not on file Sexual Orientation Not on file Plan of Treatment Health Maintenance Due Date Last Done Comments DTaP,Tdap,and Td Vaccines (1 - Tdap) 2003 Hepatitis B Vaccines (1 of 3 - 19+ 3-dose series) 2003 COVID-19 Vaccine (2023-2 5 season) 2024 Depression Screening 06/25/2024 Influenza Vaccine (#1) 2025 HIB Vaccines Aged Out No longer eligi ble based on patient's age to complete this topic HPV Vaccines Aged Out No longer eligi ble based on patient's age to complete this topic Hepatitis A Vaccines Aged Out No long er eligible based on patient's age to complete this topic IPV Vaccines Aged Out No longer eligi ble based on patient's age to complete this topic MMR Vaccines Aged Out No longer eligi ble based on patient's age to complete this topic Meningococcal ACWY Vaccine Aged Out N o longer eligible based on patient's age to complete this topic Meningococcal B Vaccine Aged Out No l onger eligible based on patient's age to complete this topic Pneumococcal Vaccine: Pediat rics (0 to 5 Years) and At-Risk Patients (6 to 49 Years) Aged Out No longer eligible b ased on patient's age to complete this topic RSV Immunization Patients Un mario 20 months Aged Out No longer eligible b ased on patient's age to complete this topic Varicella Vaccines Aged Out No longer eligible based on patient's age to complete this topic
--- OUTSIDE RECORDS SUMMARY | 2025-02-16 20:21 | XMS_ITS | Encounter Summary ---
Author Organization [employer] Address [address] [facility] [address] [place] [address] Care Team Providers Care Visitor Use Assistant Name Role Phone Alanis Leiva Primary Care Provider [phone] Reason for Visit * Reason Comments Med Refill Encounter Details Date Type Department Care Team (Late st Contact Info) Description 2022 Refill [facility] [address] [place] [address] Bob Gallegos MD [address] [place] [address] Dermatophytosis of groin Social History Tobacco Use Types Packs/Day Years Used Date Smoking Tobacco: Every Day Cigarettes Smokeless Tobacco: Never Alcohol Use Standard Drinks/Week Comments Never 0 (1 standard drink = 0.6 oz pur e alcohol) PHQ-2 Answer Date Recorded Patient Health Questionnaire-2 Score 0 06/30/2022 Depression Answer Date Recorded Patient Health Questionnaire-2 Score 0 06/30/2022 Sex and Gender Information Value Date Recorded Sex Assigned at Male 04/24/2022 10:16 AM EDT Legal Sex Male 10:16 AM EDT Gender Identity Male 04/24/2022 10:16 AM EDT Sexual Orientation Straight 04/24/2022 10 :16 AM EDT COVID-19 Exposure Response Date Recorded In the last 10 days, have yo u been in contact with someone who was confirmed or suspected to have Coronavirus/COVID-19? No / Unsure 06/29/2022 9:26 AM EST documented as of this encounter Plan of Treatment Not on file documented as of this encounter Visit Diagnoses Diagnosis Dermatophytosis of groin Dermatophytosis of groin and perianal area documented in this encounter Care Teams Visitor Use Assistant Relationship Specialty Start Date End Date Alanis Leiva FNP [address] [place] [address] PCP - General Family Medicine 12/21/21 documented as of this encounter
--- OUTSIDE RECORDS SUMMARY | 2025-02-16 20:21 | XMS_ITS | Clinical Summary ---
Author Organization [employer] Address [address] [facility] [address] [place] [address] Care Team Providers Care Air Filler Name Role Phone Alanis Leiva [facility] Primary Care Provider [phone] Allergies Active Allergy Reactions Criticality Noted Date Comments Corticosteroids Unknown 12/12/2011 Other reaction(s): 'psychotic reaction' Penicillins 08/03/2023 Other reaction(s): Unknown Phenytoin 08/03/2023 Other reaction(s): Unknown Sulfadiazine Unknown 08/03/2023 Medications clotrimazole (Lotrimin) 1 % creamIndications :Dermatophytosis of groin Apply topically 2 times daily. 30 g 3 Active doxycycline (Adoxa) 100 MG tablet Take 100 mg by mouth 2 times daily. 2 Active indomethacin (Indocin) 25 MG capsule Take 1 capsule by mouth every 8 (eight) hours. 1 Active nicotine (Nicoderm, Step 2) 14 MG/24HR patch APPLY 1 PATCH EVERY DAY 2 Active nicotine polacrilex (Nicorette) 2 MG gum chew 1 piece of gum by oral route every 1-2 hrs as needed and as directed 2 Active nicotine (Nicoderm, Step 3) 7 MG/24HR patchIndications :Tobacco dependence syndrome Place 1 patch on the skin 1 (one) time each day at the same time. 14 patch 3 Active omeprazole (PriLOSEC) [address] capsuleIndicatio ns:Gastroesophag eal reflux disease, unspecified whether esophagitis present TAKE 1 CAPSULE BY MOUTH TWICE A DAY NEEDED ACID REFLUX 180 capsule 1 3 Active SUMAtriptan (Imitrex) 50 MG tabletIndication s:Migraine without aura and without status migrainosus, not intractable Take 1 tablet (50 mg) by mouth 1 (one) time if needed for migraine. May repeat dose once in 2 hours if no relief. Do not exceed 2 doses in 24 hours. 9 tablet 1 4 Active diclofenac (Cataflam) 50 MG tablet Take 1 tablet (50 mg) by mouth 3 times daily. 90 tablet 4 Active cyclobenzaprine (Flexeril) 10 MG tablet Take 1 tablet (10 mg) by mouth at bedtime. 30 tablet 4 Active nicotine polacrilex (Nicorette) 2 MG gum Chew 1 each (2 mg) if needed for smoking cessation. Recommended guidelines: Weeks 1-6: Chew 1 piece of gum every 1-2 hrs (max 24 pieces/day) Weeks 7-9: Chew 1 piece of gum every 2-4 hrs Weeks 10-12: Chew 1 piece of gum every 4-8 hrs 2 each 3 5 Active nicotine (Nicoderm CQ) 14 MG/24HR patch After completion of 21mg/day patch: Apply 1 patch on the skin (one) time each day at the same time x 6 weeks. 72 patch 5 Active nicotine (Nicoderm CQ) 7 MG/24HR patch After completion of 14mg/day patch: Apply 1 patch on the skin (one) time each day at the same time x 2 weeks. 14 patch 5 Active Active Problems Problem Noted Date Diagnosed Date Acute pain of right shoulder 11/28/2023 Migraine without aura and wi thout status migrainosus, not intractable 09/13/2023 Assessment & Plan (09/13/2023 12:20 PM EDT): Restart sumatriptan 50mg PRN. Reviewed med use and safety Encouraged lifestyle interventions including good sleep hygiene, routine meal schedules, physical activity, trial of acupuncture if interested ED/urgent care precautions reviewed Dermatophytosis of groin 06/29/2022 Arthropathy of cervical facet joint 07/23/2019 Chronic right shoulder pain 06/06/2018 Lumbar back pain 03/08/2012 Assessment & Plan (11/28/2023 2:52 PM EDT): - Muscle relaxer, to be taken at night initially, can be increased to three times a day if needed - Diclofenac for shoulder pain - Advised not to take indomethacin with diclofenac Imaging ordered, has already f/up with PT. Patient already has an appointment at [facility] in [place] for physical therapy. Asthma 12/12/2011 Anxiety 12/11/2010 Assessment & Plan (07/01/2022 11:31 AM EST): -Referral to N for further eval and treatment -Denies SI/HI/thoughts of self harm -Pt reports feels competent to manage finances, goal is to become more autonomous and independent. Will bring form down to [facility] Forms team after appt today Gastroesophageal reflux disease 12/11/2010 Genital herpes simplex 12/11/2009 Tobacco dependence syndrome 12/11/2009 Resolved Problems Problem Noted Date Diagnosed Date Resolved Date Cellulitis of groin, right 06/29/2022 0 07/01/2022 Closed fracture of clavicle 06/06/2018 07/01/2022 Drug abuse 12/11/2010 07/01/2022 Encounters Date Type Department Care Team Description 01/14/2025 Telephone [facility] MEDICINE [address] [place] [id number] Alanis Leiva FNP Med Refill from Last 3 Months Immunizations Immunization Administration Dates Next Due DTaP 12/03/1994, 9,07/21/1986,1985,02/26/1985 Hep B, Adolescent or Pediatric 03/06/1996,1995,09/28/1995 Hib ([facility]) 07/21/1986 IPV 06/07/1989, 7,02/26/1985,1984 MMR 11/11/1993,11/05/1985 TD (adult), 2 Lf tetanus tox oid, preservative free, adsorbed 03/15/2001 Td (adult), 5 Lf tetanus tox oid, preservative free, adsorbed 12/21/2015,11/12/2013 Varicella 05/02/2001 Family History Medical History Relation Name Comments Coronary artery disease Mother Relation Name Status Comments Mother Social History Tobacco Use Types Packs/Day Years Used Date Smoking Tobacco: Every Day Cigarettes Smokeless Tobacco: Never Tobacco Cessation:Ready to Q uit: Not Asked; Counseling Given: Not Answered Alcohol Use Standard Drinks/Week Comments Never 0 (1 standard drink = 0.6 oz pur e alcohol) Depression Answer Date Recorded Patient Health Questionnaire-9 Score 4 09/10/2023 Patient Health Questionnaire-9 Score 4 09/10/2023 Last PHQ-9: Questionnaire Data Not on file 0 09/10/2023 Housing Stability Answer Date Recorded What is your housing situation today? I have rene choi 09/10/[address] you li ve. Do you have problems with any of the following? None of the above 09/10/2023 Food Insecurity Answer Date Recorded Within the past 12 months, y ou worried that your food would run out before you got money to buy more: Never True 09/10/2023 Within the past 12 months,th e food you bought just didn't last and you didn't have enough money to get more: Never True Transportation Answer Date Recorded In the past 12 months, has l ack of transportation kept you from medical appts, meetings, work or from getting things needed for daily living? No 09/10/2023 Utilities Answer Date Recorded In the past 12 months, has t he electric, gas, oil or water company threatened to shut off services in your home? No 09/10/2023 Depression Answer Date Recorded Patient Health Questionnaire-2 Score 3 09/10/2023 Sex and Gender Information Value Date Recorded Sex Assigned at Male 04/24/2022 10:16 AM EDT Legal Sex Male 10:16 AM EDT Gender Identity Male 04/24/2022 10:16 AM EDT Sexual Orientation Straight 04/24/2022 10 :16 AM EDT Last Filed Vital Signs Vital Sign Reading Time Taken Comments Blood Pressure 120/78 11/28/2023 2:30 PM EDT Pulse 88 11/28/2023 2:30 PM EDT Temperature 36.2 C (97.1 F) 11/28/2023 2:30 PM EDT Respiratory Rate 20 11/28/2023 2:30 PM EDT Oxygen Saturation 98% 11/28/2023 2:30 PM EDT Inhaled Oxygen Concentration - - Weight 70.4 kg (155 lb 3.2 oz) 11/28/2023 2:30 P M EDT Height 169 cm (5' 6.54 ) 11/28/2023 2:30 PM EDT Body Mass Index 24.65 11/28/2023 2:30 PM EDT Plan of Treatment Health Maintenance Due Date Last Done Comments Dental Oral Exam 1984 Dental Prophylaxis 1984 Dental X-Ray: Bitewings 1984 HIV Screening 1984 Lipid Panel 1984 Disability Screening 1984 Hepatitis B Vaccines (4 of 4 - 4-dose series) 03/26/1996 03/06/1996, 01/30/1996, 09/28/1995 Alcohol/Substance Use Screening 1996 Family Planning (PISQ) 1999 HPV Vaccines (1 - Male 3-dose series) 1999 Hepatitis C Screening 2002 Pneumococcal Vaccine: Pediatrics (0 to 5 Years) and At-Risk Patients (6 to 49) Years (1 of 2 - PCV) 2003 COVID-19 Vaccine ( - season) 2024 Depression Screening 09/09/2024 09/10/2023, 09/10/19 24 SDOH Screening 09/09/2024 09/10/2023 Tobacco Screening 11/27/2024 11/28/2023 Influenza Vaccine (#1) 2025 Dental X-Ray: Full Mouth 08/05/2025 08/04/2022 DTaP/Tdap/Td Vaccines (9 - Tdap) 12/20/2025 12/21/2015, 11/12/2013, 03/15/2001, Additional history exists Zoster Vaccines (1 of 2) 2034 RSV Patients and Patients Aged 60 years or older (1 - 1-dose 75+ series) 2059 HIB Vaccines Completed 07/21/1986 IPV Vaccines Completed 06/07/1989, 06/26, 02/26/1985, Additional history exists Hepatitis A Vaccines Aged Out No long er eligible based on patient's age to complete this topic Meningococcal B Vaccine Aged Out No l onger eligible based on patient's age to complete this topic Meningococcal Vaccine Aged Out No ambreen faizan eligible based on patient's age to complete this topic RSV under 20 months Aged Out No longe r eligible based on patient's age to complete this topic Rotavirus Vaccines Aged Out No longer eligible based on patient's age to complete this topic Procedures Procedure Name Priority Date/Time Associated Diagnosis Comments PANORAMIC RADIOGRAPHIC IMAGE Routine 08/04/2022 11:00 AM EST Pericoronitis from Last 3 Months or Most Recently Relevant to Health Maintenance Insurance [facility] C3 DENTAL-[facility] MEDICAID STAND ADULT Care Teams Air Filler Relationship Specialty Start Date End Date Alanis Leiva FNP [address] [place] [id number] PCP - General Family Medicine 12/21/21
== END 2025-02-16 20:23 | disposition home or self-care (01) ==
PROVIDERS: Emergency Provider Emergency Medicine
DX: H00.011 Hordeolum externum right upper eyelid (principal); F17.210 Nicotine dependence, cigarettes, uncomplicated; Z79.899 Other long term (current) drug therapy
CPT/HCPCS: 99281; 99283

== ENCOUNTER 2025-03-17 10:41 | Emergency (ER) | payer MEDICAID, SELFPAY ==
[2025-03-17 10:53] VITALS: BP 114/79; PULSE 78; RESP 18; TEMP 36.9; O2SAT 98; BMI 22.8
--- NOTE | 2025-03-17 10:57 | ED_ITS ---
HPI - General Adult General Chief complaint: Upper Respiratory Symptoms Stated complaint: sore throat, congestion Time Seen by Provider: 03/17/25 11:30 Source: patient Mode of arrival: ambulatory Limitations: no limitations History of Present Illness ED Provider: enma Phillips HPI narrative: 39-year-old male with pmh of asthma presents to the ED for URI symptoms. Patient presents to ED for sore throat, slight cough, nasal congestion, and body aches. Patient states his daughter was sick 1st now he is sick. Patient denies any chest pain or shortness of breath. Patient Related Data Home Medications ?Medication ?Instructions ?Recorded ?Confirmed omeprazole 20 mg tablet,delayed 20 mg PO DAILY@0630 OK N Acid Reflux 05/04/20 11/27/22 release ibuprofen 800 mg tablet 800 mg PO TID PRN Pain 11/2711/27/22 multivitamin 1 tab PO DAILY 11/27/22 06/11/14 Previous Rx's ?Medication ?Instructions ?Recorded amoxicillin 875 mg-potassium 1 tab PO BID #14 tabs 12/15 clavulanate 125 mg tablet prednisone 10 mg tablet See Rx Instructions .Route 0 11/28/22 .COMPLEX #20 tabs Lactobacillus rhamnosus GG 15 1 cap PO DAILY #20 caps 12/05/22 billion cell sprinkle capsule (Culturelle) clindamycin HCl 300 mg capsule 300 mg PO TID 10 days # 30 caps 12/05/22 ibuprofen 600 mg tablet 600 mg PO Q8H PRN fever or p ain 07/30/24 #20 tabs erythromycin 5 mg/gram (0.5 %) eye 0.5 inch ophthalmic (eye) Q4H #3.5 02/16/25 ointment grams albuterol sulfate 90 mcg/actuation 2 puff inhalation Q 4-6H PRN 03/17/25 aerosol inhaler (Ventolin HFA) shortness of breath or wheezing #8.5 grams benzonatate 200 mg capsule 200 mg PO TID PRN cough 5 d ays #15 03/17/25 caps triamcinolone acetonide 55 mcg 2 spray intranasal KALANI Y 5 days 03/17/25 nasal spray aerosol (Nasacort) #16.9 mL Allergies Allergy/AdvReac Type Severity Reaction Status Date / Time No Known Allergies Allergy Verified 03/17/25 10:54 Review of Systems Review of Systems: Sore throat, nasal congestion, slight cough, body aches Yes all other systems are reviewed and are negative [facility] Past Medical History Medical History Family history of colon cancer Anxiety Surgical History History of shoulder surgery History of surgical removal of pilonidal cyst Social History Social History Household Members: None Housing: House Do you presently have visiting nurse or other home services: No Alcohol intake: never Patient Tobacco Use Status: Current everyday Tobacco user Tobacco use type: Cigarette Cigarette Packs Per Day: 1 Cigarettes Per Day: 20.0 Years Smoked: 20 e-Cigarette/Vaping Use: Currently Using Substance Use Type: Marijuana Advance Directives: No Advance Directives Information Provided: No Do you have a plan to hurt others: No Plan service: No Current occupational status: unemployed Physical Exam ED Vital Signs: Vital Signs - 24 hr 03/17/25 10:53 03/17/25 12:30 Temperature 98.5 F 98.5 F Pulse Rate 78 78 Respiratory Rate 18 18 Blood Pressure 114/79 114/79 Pulse Oximetry 98 98 Oxygen Delivery Method Room Air Room Air BMI result Body Mass Index 22.8 Const General: cooperative, healthy appearing, comfortable, no acute distress, well developed, alert, awake and Physically active Orientation/consciousness: patient oriented x3 HENMT Head: Yes normal to inspection, Yes No palpable skull fracture present, Yes normocephalic and Yes atraumatic Ears: hearing grossly normal bilaterally, external ears normal, TM's normal bilaterally, TM normal on the right, TM normal on the left, EAC's normal, mastoids normal and no periauricular adenopathy Face and sinus: Yes sinus tenderness (Bilateral maxillary) Throat: Yes posterior oropharynx normal, Yes tonsils normal and Yes uvula midline Eyes General: appearance normal, both eyes and all related structures Neck Neck: Yes normal visual inspection, Yes full ROM, Yes no lymphadenopathy, Yes no meningeal signs, Yes trachea midline, Yes supple, No anterior neck swelling and No tender Chest Chest palpation & inspection: normal inspection of the chest and normal palpation of entire chest wall Resp Effort & Inspection: normal respiratory effort and able to speak in complete sentences Auscultation: clear to auscultation bilaterally Cardio Jugular venous distension: no JVD Heart sounds: S1 normal heart sound present and S2 normal heart sound present GI Inspection: Yes normal to inspection Palpation (GI): Soft to palpation, not firm, nontender, no guarding and not rigid General: Yes no CVA tenderness Back/Spine/Pelvis Back: no CVA tenderness and No back tenderness Skin General skin exam: no rashes or lesions noted, elasticity normal and turgor normal Neuro General: patient oriented x3, gait normal, tone normal, moves all extremities, Normal light touch and pain sensation, no meningeal signs, no focal motor deficits, CN's II-XI intact bilaterally and normal sensation to monofilament Extrem General: Yes normal to inspection, Yes full ROM and Yes capillary refill normal Psych Appearance: grossly normal, well kempt and not disheveled Course Course Course Narrative: This is a Rapid Medical Examination (RME) performed by Pennie Barriga PA-C in triage. Full HPI, ROS, assessment and treatment plan per primary provider in the Main ED. Hx: 39 yo M here for eval of sore throat, congestion, and low back muscle pains x2 days. daughters are ill as well. Plan: viral/strep swabs Medical Decision Making Medical Decision Making [facility] Narrative: [age] year male history of childhood asthma presents to ED for URI symptoms. Patient's vital signs stable. Patient denies any chest pain or shortness of breath. COVID influenza strep came back negative. Lungs are cleaned exam. Not suspecting PE, RI, pericarditis, myocarditis, heart failure, pneumonia, respiratory failure, or any other life-threatening etiology. Patient explained worrisome signs and informed to return to the ED immediately. Differential Diagnosis Differential Diagnoses: The differential diagnosis associated with the presentation includes (COVID, influenza, strep) Admission/Observation Consideration of admission/observation: Escalation of care including admission/observation considered Lab Data [facility] Lab Attestation statement: I reviewed the patient's lab results. Labs: Lab Results 03/17/25 Range/Units 11:05 COVID-19 ([facility]) Negative (Negative) COVID-19 Clin Com See Note Influenza Type A ([facility]) Negative (Negative) Influenza Type B ([facility]) Negative (Negative) Influenza A & B Note See Note S. pyogenes GrpA [facility] Negative (Negative) Radiology Impression Discussion of test interpretation with radiology: I have reviewed the r adiologist's reading. Independent Historian Clinical information obtained from an independent historian. History obtained from or confirmed by: Other (Patient) Prescription Management I considered prescription management with: Other (nasocort , albuterol) Discharge Plan Discharge Clinical Impression: URI (upper respiratory infection) Patient Disposition: Home, Self-Care Instructions: Sinusitis (ED), Upper Respiratory Infection (ED), Acute Bronchitis (ED) Additional Instructions: Recommend follow-up with primary care provider. Return to the ED immediately for any chest pain, shortness of breath, coughing up blood, weakness, dizziness, abdominal pain, or any other concerning symptoms. Prescriptions: New albuterol sulfate [Ventolin HFA] 90 mcg/actuation HFA aerosol inhaler 2 puff inhalation Q4-6H PRN (Reason: shortness of breath or wheezing) Qty: 8.5 0RF benzonatate 200 mg capsule 200 mg PO TID PRN (Reason: cough) 5 Days Qty: 15 0RF triamcinolone acetonide [Nasacort] 55 mcg aerosol,spray 2 spray intranasal DAILY 5 Days Qty: 16.9 0RF Rx Instructions: administer into each nostril No Action multivitamin Tablet 1 tab PO DAILY ibuprofen 800 mg Tablet 800 mg PO TID PRN (Reason: Pain) amoxicillin-pot clavulanate 875-125 mg tablet 1 tab PO BID Qty: 14 0RF prednisone 10 mg tablet See Rx Instructions .ROUTE .COMPLEX Qty: 20 0RF Rx Instructions: 40 mg daily x 2 days, then 30 mg daily x 2 days, then 20 mg daily x 2 days, then 10 mg daily x 2 days clindamycin HCl 300 mg capsule 300 mg PO TID 10 Days Qty: 30 0RF Culturelle 15 billion cell capsule, sprinkle 1 cap PO DAILY Qty: 20 0RF ibuprofen 600 mg tablet 600 mg PO Q8H PRN (Reason: fever or pain) Qty: 20 0RF erythromycin 5 mg/gram (0.5 %) ointment 0.5 inch ophthalmic (eye) Q4H Qty: 3.5 0RF omeprazole 20 mg tablet,delayed release (DR/EC) 20 mg PO DAILY@0630 PRN (Reason: Acid Reflux) Referrals: [facility] [Primary Care Provider, Medical] - 2 days Referral Note: URI symptoms Stand Alone Forms: Work/School Release Interventions: ED Discharge Assessment Last Done: 03/17/25 12:30 Discharge Date/Time: 03/17/25 12:31 Print Language: Chinese
[2025-03-17 11:35] LABS: COVID-19 Test Negative (Negative); IDNOW Serial# 55D5AD1C; IDNOW Serial# 58CA691E; Influenza B2 Negative (Negative)
[2025-03-17 11:36] LABS: IDNOW Serial# 152EDE1D; Strep A Nucleic Acid Negative (Negative)
[2025-03-17 12:30] VITALS: BP 114/79; PULSE 78; RESP 18; TEMP 36.9; O2SAT 98
--- OUTSIDE RECORDS SUMMARY | 2025-03-17 13:53 | XMS_ITS | Encounter Summary ---
Author Organization [employer] Address [address] [place] [address] Care Team Providers Care Order Builder Name Role Phone Alanis Leiva HOB[employer] PRESS OPERATOR Primary Care Provider [phone] Encounter Details Date Type Department Care Team (Late st Contact Info) Description 03/17/2025 Orders Only GENERIC EXTERNAL DATA DEPARTMENT Provider, Generic External Data Social History Tobacco Use Types Packs/Day Years [...] Orientation Straight 04/24/2022 10 :16 AM EDT documented as of this encounter Plan of Treatment Not on file documented as of this encounter Procedures Procedure Name Priority Date/Time Associated Diagnosis Comments INFLUENZA A B2 ID NOW ([place]) Routine 03/17/2025 11:05 AM EDT STREP A NUCLEIC ACID Routine 03/17/2025 11:05 AM EDT COVID-19 ID NOW ([place]) Routine 03/17/2025 11:05 AM EDT documented in this encounter Results * Strep A Nucleic Acid (03/17/2025 11:05 AM EDT) IDNOW SERIAL# [id number] [facility] Strep A Nucleic Acid Negative Negative [facility] Comment:All test results mus t be correlated with clinical findings.This test has not been evaluated for monitoring treatment ofinfection.Additional follow-up testing using the culture method isrequired if the result is negative and clinical symptomspersist, or in the event of an acute rheumatic feveroutbreak. 03/17/2025 11:0 5 AM EDT 03/17/2025 11:08 AM EDT us Generic External Data Provider LAB MICROBIOLOGY - GENERAL ORDERABLES Final Result [facility] [address] [place] [phone] * COVID-19 ID NOW ([place]) (03/17/2025 11:05 AM EDT) IDNOW SERIAL# [id number] [facility] COVID-19 TEST Negative Negative [facility] COVID-19 NOTE See Note [facility] Comment: Results are for the identification of SARS-CoV2 RNA. TheSARS-CoV2 RNA is generally detectable in respiratory samplesduring the acute phase of infection. Positive results areindicative of the presence of SARS-CoV-2 RNA; clinicalcorrelation with patient history and other diagnosticinformation is necessary to determine patient infectionstatus. Positive results do not rule out bacterial infectionor co- infection with other viruses.Testing facilities within the [place] and [facility] are required to report all positive results tothe appropriate public health authorities.Negative results should be treated as presumptive and, ifinconsistent with clinical signs and symptoms or necessaryfor patient management, should be tested with differentauthorized or cleared molecular tests. Negative results donot preclude SARS-CoV2 RNA infection and should not be usedas the sole basis for patient management decisions. Negativeresults should be considered in the context of a patient'srecent exposures, history and the presence of clinical signsand symptoms consistent with COVID-19.This test has been authorized by the FDA under an EmergencyUse Authorization (EUA) for use by authorized laboratories.Testing performed on the [place] ID NOW utilizing NAAT. 03/17/2025 11:0 5 AM EDT 03/17/2025 11:08 AM EDT us Generic External Data Provider LAB MOLECULAR GABY GNOSTICS ORDERABLES Final Result [facility] [address] [place] [phone] * Influenza A B2 ID NOW ([employer] (03/17/2025 11:05 AM EDT) IDNOW SERIAL# [id number] [facility] Influenza A Negative Negative [facility] Influenza B2 Negative Negative [facility] Influenza A B2 Note See Note [facility] Comment:The [place] ID NOW In fluenza A B2 test is used for thequalitative detection of influenza A and B from patientswith signs and symptoms of respiratory infection.Negative results do not preclude influenza virus infectionand should not be used as the sole basis for diagnosis,treatment or other patient management decisions.There is a risk of false negative results due to thepresence of variants in the viral targets of the assay, lowlevels of virus in the specimen and co- infection withRespiratory Syncytial Virus. 03/17/2025 11:0 5 AM EDT 03/17/2025 11:08 AM EDT us Generic External Data Provider LAB MICROBIOLOGY - GENERAL ORDERABLES Final Result [facility] [address] [place] [phone] documented in this encounter Visit Diagnoses Not on filedocumented in this encounter Additional Health Concerns Assessment Noted Time PHQ-9 Depression Total Score: 4 09/10/19 24 10:27 AM EDT documented as of this encounter Care Teams Order Builder Relationship Specialty Start Date End Date Alanis Leiva FNP [address] [place] [address] PCP - General Family Medicine 12/21/21 documented as of this encounter
--- OUTSIDE RECORDS SUMMARY | 2025-03-17 13:53 | XMS_ITS | Clinical Summary ---
Author Organization [employer] Address [address] [facility] [address] [place] [address] Care Team Providers Care Systems Designer Name Role Phone Alanis Leiva [facility] Primary Care Provider [phone] Allergies Active Allergy Reactions Criticality Noted Date [...] appointment at [facility] [place] for physical therapy. Asthma 12/12/2011 Anxiety 12/11/2010 Assessment & Plan (07/01/2022 11:31 AM EST): -Referral to N for further eval and treatment -Denies SI/HI/thoughts of self harm -Pt reports feels competent to manage finances, goal is to become more autonomous and independent. Will bring form down to [facility] Forms team after appt today Gastroesophageal reflux disease 12/11/2010 Genital herpes simplex 12/11/2009 Tobacco dependence syndrome 12/11/2009 Resolved Problems Problem Noted Date Diagnosed Date Resolved Date Cellulitis of groin, right 06/29/2022 0 07/01/2022 Closed fracture of clavicle 06/06/2018 07/01/2022 Drug abuse 12/11/2010 07/01/2022 Encounters Date Type Department Care Team Description 03/17/2025 Orders Only GENERIC EXTERNAL DATA DEPARTMENT Provider, Generic External Data 01/14/2025 Telephone [facility] [address] [place] [address] [phone] Alanis Leiva FNP Med Refill from Last 3 Months Immunizations Immunization Administration Dates Next Due DTaP 12/03/1994, 9,07/21/1986,1985,02/26/1985 Hep B, Adolescent or Pediatric 03/06/1996,1995,09/28/1995 Hib ([facility]) 07/21/1986 IPV 06/07/1989, 7,02/26/1985,1984 MMR 11/11/1993,11/05/1985 TD [...] Years (1 of 2 - PCV) 2003 Depression Screening 09/09/2024 09/10/2023, 09/10/19 24 SDOH Screening 09/09/2024 09/10/2023 Tobacco Screening 11/27/2024 11/28/2023 COVID-19 Vaccine ( - season) 2025 Influenza Vaccine (#1) 2025 Dental X-Ray: Full [...] Procedure Name Priority Date/Time Associated Diagnosis Comments COVID-19 ID NOW ([place]) Routine 03/17/2025 11:05 AM EDT STREP A NUCLEIC ACID Routine 03/17/2025 11:05 AM EDT INFLUENZA A B2 ID NOW ([place]) Routine 03/17/2025 11:05 AM EDT PANORAMIC RADIOGRAPHIC IMAGE Routine 08/04/2022 11:00 AM EST Pericoronitis from Last 3 Months or Most Recently Relevant to Health Maintenance Results * Influenza A B2 ID NOW ([place]) (03/17/2025 11:05 AM EDT) IDNOW SERIAL# [id number] [facility] Influenza A Negative Negative [facility] Influenza B2 Negative Negative [facility] Influenza A B2 Note See Note [facility] Comment:The [place] ID NOW In [...] LAB MICROBIOLOGY - GENERAL ORDERABLES Final Result [facility] [address] [place] [phone] * Strep A Nucleic Acid (03/17/2025 11:05 AM EDT) IDNOW SERIAL# [id number] [facility] Strep A Nucleic Acid Negative Negative [facility] Comment:All test results mus t [...] LAB MICROBIOLOGY - GENERAL ORDERABLES Final Result [facility] [address] [place] [phone] * COVID-19 ID NOW ([place]) (03/17/2025 11:05 AM EDT) IDNOW SERIAL# [id number] [facility] COVID-19 TEST Negative Negative [facility] COVID-19 NOTE See Note [facility] Comment: Results are for the identification of SARS-CoV2 RNA. TheSARS-CoV2 RNA is generally detectable in respiratory samplesduring the acute phase of infection. Positive results areindicative of the presence of SARS-CoV-2 RNA; clinicalcorrelation with patient history and other diagnosticinformation is necessary to determine patient infectionstatus. Positive results do not rule out bacterial infectionor co- infection with other viruses.Testing facilities within the [facility] and [facility] are required to report all positive results [...] use by authorized laboratories.Testing performed on the [place] ID NOW utilizing NAAT. 03/17/2025 11:0 5 AM EDT 03/17/2025 11:08 AM EDT us Generic External Data Provider LAB MOLECULAR GABY GNOSTICS ORDERABLES Final Result [facility] [address] [place] [phone] from Last [address] [place] [address] [id number] DENTAL-[facility] MEDICAID STAND ADULT Care Teams Systems Designer Relationship Specialty Start Date End Date Alanis Leiva FNP [address] [place] [phone] PCP - General Family Medicine 12/21/21
--- OUTSIDE RECORDS SUMMARY | 2025-03-17 13:53 | XMS_ITS | Clinical Summary ---
Author Organization [employer] [facility] Address [address] [place] [address] Care Team Providers Care Quality Process Auditor Name Role Phone Unavailable Primary Care Provider [...] of 3 - 19+ 3-dose series) 2003 Depression Screening 06/25/2024 COVID-19 Vaccine ( - 2023-2 5 season) 2025 Influenza Vaccine (#1) 2025 HIB Vaccines Aged [...]
--- OUTSIDE RECORDS SUMMARY | 2025-03-17 13:53 | XMS_ITS | Encounter Summary ---
Author Organization [employer] Address [address] [facility] [address] [place] [address] Care Team Providers Care Jewel Bearing Facer Name Role Phone Alanis Leiva Primary Care Provider [phone] Reason for Visit * Reason Comments Med Refill Encounter Details Date Type Department Care Team (Late st Contact Info) Description 2022 Refill [facility] [address] [place] [address] Bob Gallegos MD [address] [place] [address] Dermatophytosis of groin Social History Tobacco Use [...] area documented in this encounter Care Teams Jewel Bearing Facer Relationship Specialty Start Date End Date Alanis Leiva FNP [address] [place] [address] PCP - General Family Medicine 12/21/21 documented as of this encounter
== END 2025-03-17 12:31 | disposition home or self-care (01) ==
PROVIDERS: Physician Assistant Medical; Emergency Provider Emergency Medicine
DX: J06.9 Acute upper respiratory infection, unspecified (principal); J02.9 Acute pharyngitis, unspecified; R09.81 Nasal congestion; M79.10 Myalgia, unspecified site; R05.9 Cough, unspecified; Z79.899 Other long term (current) drug therapy; F17.210 Nicotine dependence, cigarettes, uncomplicated; Z11.52 Encounter for screening for COVID-19
CPT/HCPCS: 87502; 87635; 87651; 99282; 99283